=== PATIENT | male | born 1950 | race African-American/Black ===

== ENCOUNTER 2016-06-30 16:00 | Inpatient (IN) ==
[2016-06-30] MEDS ORDERED: ONDANSETRON 4 MG/2 ML VIAL IV STA (16:51)
[2016-06-30] MEDS ORDERED: HYDROmorphone 2 MG/1 ML VIAL IV STA (16:51)
[2016-06-30] MEDS ORDERED: ONDANSETRON 4 MG/2 ML VIAL ONE (17:00)
[2016-06-30] MEDS ORDERED: HYDROmorphone 2 MG/1 ML VIAL ONE ×2 (17:00→19:06)
[2016-06-30 17:14] LABS: Albumin 3.8 G/DL (3.4-5.0); Bilirubin,Total 0.6 MG/DL (0.2-1.0); Calcium 8.2 MG/DL (8.5-10.1); Osmolality,Calculated 290.6 MOS/KG (273-304); Potassium 3.5 MMOL/L (3.5-5.1); Total Protein 7.8 G/DL (6.4-8.3)
[2016-06-30 17:18] LABS: INR 1.1; PT Patient Result 11.4 SECS
[2016-06-30 17:25] LABS: Hematocrit 43.4 VOL% (42.0-52.0); Mean Corpuscular HGB Conc 34.3 GM/DL (32-36); Mean Corpuscular Hemoglobin 31 PG (27-34); Mean Corpuscular Volume 90.2 FL (87-102); Red Blood Count 4.81 10*6/uL (3.8-5.5); White Blood Count 6.5 10*3/uL (4.5-13.71)
[2016-06-30 17:26] LABS: Basophils % 0.6 % (0.0-0.8); Eosinophils # 0.2 10*3/uL (0.0-0.87); Eosinophils % 2.6 % (0.00-10.9); Large Unclassified Cells % 0.5 % (0.0-4.0); Lymphocytes # 1.3 10*3/uL (1.4-4.0); Lymphocytes % 20.1 % (21.2-54.2); Mean Platelet Volume 10.7 FL (9.6-12.0); Monocytes # 0.8 10*3/uL (0.11-0.8); Monocytes % 11.7 % (1.7-12.7); Neutrophils # 4.2 10*3/uL (1.4-7.4); Neutrophils % 64.5 % (38.7-73.9); Platelet Count 208 10*3/uL (130-400); Red Cell Distribution Width 14.1 % (9.3-17.3)
--- NOTE | 2016-06-30 18:38 | XRay Report ---
History: Shortness of breath Date: 06/30/2016 Study: Chest x-ray AP portable Comparison exam: No remote chest x-ray for comparison There is mild cardiomegaly. There is no mediastinal mass. The pulmonary vasculature is not engorged. Some scattered emphysematous changes are present. There is mild elevation of the left hemidiaphragm. There is no confluent infiltrate. There is no gross pleural effusion. There is mild thoracic spondylosis. Impression: No definite acute process. Mild cardiomegaly. Emphysematous changes PROCEDURE INTERPRETED AT [facility] DEPARTMENT OF RADIOLOGY Final Report Signed by: Dr. Alie Moran
--- NOTE | 2016-06-30 18:38 | EKG Report ---
Stationary ECG Study [facility] ER Test Date: 06/30/2016 5:27:40 PM Pat Name: KAYA MURGUIA Department: Room: Gender: M Electrician Yard: MARIYA : 1950 Requested by: Primo Zuñiga Order Number: [id number] Reading MD: BLANCA DOTY Intervals [place] Rate: 85 P: 91 [place]: 160 QRS: 57 QRSD: 101 T: 66 QT: 337 QTc: 380 Interpretive Statements SINUS RHYTHM NONSPECIFIC T-WAVE ABNORMALITY Electronically Signed On 07-01-16 12:34:24 INSURANCE POLICY CLERK by BLANCA DOTY [email or web address]
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
[2016-06-30] MEDS ORDERED: HYDROmorphone 2 MG/1 ML VIAL IV ONE (18:57)
--- NOTE | 2016-06-30 19:17 | Emergency Department Note ---
Fredis Conway Meredith, am scribing for, and in the presence of, Primo Littlejohn MD 16:55. Annetta Conway Charles R, MD, personally performed the services described in this documentation, ascribed by Emily Mcneal in my presence, and it is both accurate and complete 917 . Arrival - Arrival Chief Complaint: Fall Stated Complaint: pain to right hip after fall Mode of Arrival: Wheelchair Limitations: No Limitations Source: Patient, RN Notes Reviewed Time Seen by Provider: 06/30/16 16:42 - History of Present Illness HPI Narrative: Pt is a 66 y/o black male reporting to the ED with c/o right hip pain after slipping on an icy step. He denies hitting his head or LOC. Pt takes ASA daily. Onset (ago): minute(s) Home Medications: Home Medications Medication Instructions Recorded Confirmed Type Carvedilol [Coreg] 6.25 mg PO BID 06/30/16 06/30/16 History amLODIPine [Norvasc] 10 mg PO DAILY 06/30/16 06/30/16 History Review of System - Review of System 12 point system: reviewed and no additional remarkable complaints except as stated - Review of System Musculoskeletal: Present: as per HPI, other (right hip pain ) Exam Vital Signs: Vital Signs Temperature 97.8 F 06/30/16 18:53 Pulse Rate 85 06/30/16 18:53 Respiratory Rate 19 06/30/16 18:53 Blood Pressure 147/94 06/30/16 18:53 O2 Sat by Pulse Oximetry 97 06/30/16 18:53 - General General appearance: alert, in no apparent distress - Head Head exam: Present: atraumatic, normocephalic - Eye Eye exam: Present: normal appearance, PERRL, EOMI - ENT ENT exam: Present: mucous membranes moist, normal external ear exam - Neck Neck exam: Present: full ROM, trachea midline. Absent: tenderness, meningismus , lymphadenopathy, thyromegaly - Chest Chest inspection: Present: symmetric chest wall rise. Absent: tenderness, rash - Respiratory Respiratory exam: Present: normal lung sounds bilaterally. Absent: respiratory distress - Cardiovascular Cardiovascular exam: Present: regular rate, normal rhythm, normal heart sounds. Absent: murmur, rubs, gallop - Abdominal Exam Abdominal exam: Present: soft, normal bowel sounds. Absent: distention, tenderness - Extremities Exam Extremities exam: Present: tenderness (right hip), other (right hip is externally rotated) - Back Exam Back exam: Present: full ROM. Absent: tenderness - Neurological Exam Neurological exam: Present: alert, oriented X3, CN II-XII intact. Absent: motor sensory deficit - Psychiatric Psychiatric exam: Present: normal affect, normal mood - Skin Skin exam: Present: warm, dry, intact Course - Consultations Consultation #1: Dr. Santillan will admit patient Time: 18:58 Consultation #2: Hospitalist will see patient for medical consult Time: 19:16 Results - Labs CBC & BMP: 06/30/16 16:32 06/30/16 16:32 Lab Results: I have reviewed the patients labs Labs: Laboratory Tests 06/30/16 06/30/16 16:32 16:32 INR 1.1 PT Patient/Control Mix 11.4 Sodium 146 H Potassium 3.5 Chloride 104 Carbon Dioxide 30 Anion Gap 15.5 H BUN 13 Creatinine 1.30 Glucose 121 H Calcium 8.2 L Globulin 4.0 H Albumin/Globulin Ratio 0.9 L Disposition Clinical Impression: mechanical fall, right femoral neck fracture. Case discussed with: patient, patient's family Disposition: Still a Patient Condition: Stable Time of Disposition: 19:16
[2016-06-30 19:28] LABS: Apearance,Urine CLEAR (Clear); Bacteria,Urine Occasional /HPF (Few); Bilirubin,Urine Negative (Negative); Blood, Urine Negative (Negative); Glucose,Urine (UA) Negative (Negative); Hyaline Casts,Urine 1 /LPF (0-3); Ketones,Urine Negative (Negative); Mucus,Urine Occasional /LPF (Occasional); Nitrite,Urine Negative (Negative); Protein,Urine Negative; RBC,Urine 1 /HPF (0-4); Urine Color Yellow (Yellow); Urine Specific Gravity 1.015 (1.001-1.035); WBC,Urine <1 /HPF (0-6)
--- NOTE | 2016-06-30 19:30 | Hospitalist Consult Note ---
Assessment and Plan (1) Fracture of femoral neck, right Status: Acute Assessment and plan: low risk for surgery. Current Visit: Yes (2) Hypertension Status: Acute Assessment and plan: restart coreg, hold norvasc Current Visit: Yes (3) COPD (chronic obstructive pulmonary disease) Status: Acute Assessment and plan: oxygen and prn duonebs Current Visit: Yes History of Present Illness - Data of Consult Consult date: 06/30/16 Requesting Physician: Toby Santillan Jr. - Consult Narrative Reason for consult: management of hypertension History of present illness: Mr. Suero is a 66 year old male with a history of htn, copd and cad who slipped on [place] step and fractured his right femoral neck. Patient had stents placed 12 years ago. He denies chest pain or SOB. He denies any dizziness or lightheadness prior to the fall. CC: - Home Medications and Allergies Home Medications: Home Medications Medication Instructions Recorded Confirmed Type Carvedilol [Coreg] 6.25 mg PO BID 06/30/16 06/30/16 History amLODIPine [Norvasc] 10 mg PO DAILY 06/30/16 06/30/16 History Medical,Surgical,& Family Hx - Medical History Cardio: History of: CAD, Hypertension Respiratory: History of: COPD - Surgical History Cardiac Surgeries: Sugical HX of: Cardiac Catheterization Abdominal Surgeries: Surgical HX of: Hernia Repair Additional Surgical History: jaw surgery. - Family History Family History: Reports;: Family Diabetes, Family Heart Disease, Family Stroke - Social History Smoking Status: Former smoker Frequency of Alcohol Use: None Type of Drug Use: None Marital Status: Lives With:: Spouse Functional capacity: independent ambulation - Constitutional Constitutional: Absent: fatigue, fever(s), frequent falls, headache(s) - EENT Eyes: Absent: blurry vision, diplopia Ears: Absent: decreased hearing, ear discharge Nose, mouth and throat: Absent: headache(s), sore throat - Cardiovascular Cardiovascular: Absent: chest pain at rest, chest pain with activity, dyspnea, dyspnea on exertion, edema - Respiratory Respiratory: Absent: cough, dyspnea, dyspnea on exertion - Gastrointestinal Gastrointestinal: Present: abdominal pain. Absent: constipation, diarrhea, nausea, vomiting - Genitourinary Genitourinary: Absent: difficulty urinating, dysuria - Musculoskeletal Musculoskeletal: Absent: arthralgias - Neurological Neurological: Absent: confusion, dizziness, headache(s) - Psychiatric Psychiatric: Absent: anxiety, depression - Endocrine Endocrine: Absent: cold intolerance, heat intolerance - Hematologic/Lymphatic Hematologic/Lymphatic: Absent: easy bleeding, easy bruising Exam - Constitutional Vitals: Period Temp Pulse Resp BP Sys/Prater Pulse Ox Last 24 Hr 97.8 F 85 19 147/94 97 General appearance: normal weight, no acute distress - Head Head exam: Present: normal inspection, normocephalic - Eye Eye exam: Present: EOMI. Absent: scleral icterus Pupils: Present: REENA, normal accommodation - ENT ENT exam: Present: normal exam, normal external ear exam - Neck Neck exam: Absent: lymphadenopathy, thyromegaly - Respiratory Respiratory exam: Present: clear to auscultation bilaterally. Absent: rhonchi, wheezes - Cardiovascular Cardiovascular exam: Present: regular rate and rhythm. Absent: systolic murmur - GI/Abdominal GI/Abdominal exam: Present: normal bowel sounds, soft. Absent: tenderness - Extremities Exam Extremities exam: Present: normal inspection, normal capillary refill - Neurological Exam Neurological exam: Present: alert, oriented X3, CN II-XII intact, reflexes normal. Absent: motor sensory deficit (could not test right leg due to fracture ) - Psychiatric Psychiatric exam: Present: normal affect, normal mood - Skin Skin exam: Present: normal color, warm Results - Labs CBC & BMP: 06/30/16 16:32 06/30/16 16:32 Lab Results: I have reviewed the past 24 hour labs - EKG EKG shows: sinus rhythm - Diagnostic Findings Procedure: Chest x-ray: report reviewed by me (copd), X-ray: report reviewed by me (right femoral neck fracture ) Specialty Discharge - Follow Up or Referrals - Discharge Medications No Action amLODIPine [Norvasc] 10 mg PO DAILY Carvedilol [Coreg] 6.25 mg PO BID
--- NOTE | 2016-06-30 20:20 | Orthopedic History & Physical ---
Assessment and Plan (1) Fracture of femoral neck, right Status: Acute Current Visit: Yes Qualifiers: Encounter type: initial encounter Fracture type: closed Qualified Code(s) : S72.001A - Fracture of unspecified part of neck of right femur, initial encounter for closed fracture History of Present Illness Chief complaint: right hip fracture History of present illness: Mr. Suero is a 66 year old male who slipped and fell off of his back porch this afternoon. He sustained immediate right hip pain and was unable to ambulate. Was found to have a displaced femoral neck fracture. Patient denies any other history of injury. The patient is a independent ambulator. Rarely uses a cane because of his history of a failed back syndrome. He denies any prior problems with his right lower extremity. He denies any numbness or tingling. Past medical history is significant for failed back syndrome, coronary artery disease, hypertension. Past surgical history significant for lumbar spine surgery and 3 coronary artery stent placement No known drug allergies Patient is a former smoker. He stopped in 2004. He has been disabled from failed back syndrome. Review of systems 12 points otherwise noncontributory. He is alert and oriented Heart regular rate and rhythm Lungs clear auscultation Spine and other extremities within without any obvious deformity Right lower extremity is shortened and externally rotated. He can flex extend his toes and ankle. Sensations intact his first dorsal webspace, plantar and dorsal aspects of his foot. He has a 1+ dorsalis pedis and posterior tibial pulse. Capillary refills less than 2 seconds. Radiographs pelvis and hip were reviewed. They demonstrated displaced right femoral neck fracture. Impression: Right displaced femoral neck fracture Plan: I've advised a right total hip arthroplasty. Risks, benefits and rationale for the procedure were discussed. All questions were answered. Risks include but not limited to infection, bleeding, anesthesia, thromboembolic event, dislocation, leg length discrepancy, need for further operation, , etc. Home Medications Medication Instructions Recorded Confirmed Type Carvedilol [Coreg] 6.25 mg PO BID 06/30/16 06/30/16 History amLODIPine [Norvasc] 10 mg PO DAILY 06/30/16 06/30/16 History 12 point system: reviewed and no additional remarkable complaints except as stated Medical,Surgical,& Family Hx - Medical History Cardio: History of: CAD, Hypertension Respiratory: History of: COPD - Surgical History Cardiac Surgeries: Sugical HX of: Cardiac Catheterization Abdominal Surgeries: Surgical HX of: Hernia Repair - Family History Family History: Reports;: Family Diabetes, Family Heart Disease, Family Stroke - Social History Smoking Status: Former smoker Frequency of Alcohol Use: None Type of Drug Use: None Exam - Constitutional Vitals: Period Temp Pulse Resp BP Sys/Prater Pulse Ox Last 24 Hr 97.8 F 85 19 147/94 97 Results - Labs CBC & BMP: 06/30/16 16:32 06/30/16 16:32
[2016-06-30] MEDS ORDERED: MAGNESIUM HYDROXIDE SUSP 30 ML UDCUP PO PRN (21:12)
[2016-06-30] MEDS ORDERED: FAMOTIDINE 20 MG TABLET PO PRN (21:12)
[2016-06-30] MEDS: CARVEDILOL 6.25 MG TABLET PO SCH (21:20)
[2016-06-30] MEDS: HYDROmorphone 2 MG/1 ML VIAL IV PRN (21:20)
[2016-06-30] MEDS: SODIUM CHLORIDE 0.9% 1,000 ML IV SCH (22:06)
[2016-06-30 22:57] LABS: Basophils % 0.5 % (0.0-0.8); Eosinophils # 0.2 10*3/uL (0.0-0.87); Eosinophils % 2.9 % (0.00-10.9); Hemoglobin 12.7 GM/DL (14.0-18.0); Immature Granulocytes % 0.4 %; Immature Granulocytes Absolute 0.02 #; Lymphocytes # 1.6 10*3/uL (1.4-4.0); Lymphocytes % 29.1 % (21.2-54.2); Mean Corpuscular HGB Conc 33.4 GM/DL (32-36); Mean Corpuscular Hemoglobin 30 PG (27-34); Mean Corpuscular Volume 90.7 FL (87-102); Monocytes # 0.9 10*3/uL (0.11-0.8); Monocytes % 15.9 % (1.7-12.7); Neutrophils # 2.8 10*3/uL (1.4-7.4); Neutrophils % 51.2 % (38.7-73.9); Platelet Count 205 10*3/uL (130-400); Red Blood Count 4.19 10*6/uL (3.8-5.5); Red Cell Distribution Width 14.1 % (9.3-17.3); White Blood Count 5.5 10*3/uL (4.5-13.71)
[2016-06-30 23:09] LABS: Albumin 3.7 G/DL (3.4-5.0); Bilirubin,Total 0.7 MG/DL (0.2-1.0); Osmolality,Calculated 293.7 MOS/KG (273-304); Total Protein 6.8 G/DL (6.4-8.3)
[2016-06-30 23:19] LABS: Apearance,Urine CLEAR (Clear); Bilirubin,Urine Negative (Negative); Blood, Urine Negative (Negative); Glucose,Urine (UA) Negative (Negative); Ketones,Urine Negative (Negative); Mucus,Urine Occasional /LPF (Occasional); Nitrite,Urine Negative (Negative); Protein,Urine Negative; RBC,Urine 1 /HPF (0-4); Urine Color Yellow (Yellow); Urine Specific Gravity 1.016 (1.001-1.035); WBC,Urine 1 /HPF (0-6)
[2016-07-01 00:19] LABS: Band Neutrophils 2 % (0-10); Eosinophils 3 % (0-10); Lymphocytes 30 % (20-55); Metamyelocytes 1 %; Myelocytes 4 %; Segmented Neutrophils 56 % (50-85); Total Cells Counted 100
[2016-07-01 00:20] LABS: Platelet Estimate Normal
[2016-07-01] MEDS: ONDANSETRON 4 MG/2 ML VIAL IV PRN ×2 (02:10→11:27)
[2016-07-01] MEDS: HYDROmorphone 2 MG/1 ML VIAL IV PRN ×6 (02:10→20:23)
[2016-07-01 05:26] LABS: Basophils % 0.7 % (0.0-0.8); Eosinophils # 0.2 10*3/uL (0.0-0.87); Eosinophils % 3.6 % (0.00-10.9); Hematocrit 36.5 VOL% (42.0-52.0); Immature Granulocytes % 0.4 %; Immature Granulocytes Absolute 0.02 #; Lymphocytes # 1.8 10*3/uL (1.4-4.0); Lymphocytes % 32.4 % (21.2-54.2); Mean Corpuscular HGB Conc 32.9 GM/DL (32-36); Mean Corpuscular Hemoglobin 30 PG (27-34); Mean Platelet Volume 10.2 FL (9.6-12.0); Monocytes # 0.9 10*3/uL (0.11-0.8); Monocytes % 16.8 % (1.7-12.7); Neutrophils # 2.6 10*3/uL (1.4-7.4); Neutrophils % 46.1 % (38.7-73.9); Platelet Count 210 10*3/uL (130-400); Red Blood Count 4.01 10*6/uL (3.8-5.5); Red Cell Distribution Width 14.3 % (9.3-17.3); White Blood Count 5.5 10*3/uL (4.5-13.71)
[2016-07-01 05:34] LABS: INR 1.1; PT Patient Result 11.4 SECS
[2016-07-01 06:17] LABS: Band Neutrophils 1 % (0-10); Eosinophils 1 % (0-10); Lymphocytes 34 % (20-55); Myelocytes 2 %; Segmented Neutrophils 59 % (50-85); Total Cells Counted 100
[2016-07-01 06:18] LABS: Anisocytosis 1+; Platelet Estimate Normal
[2016-07-01 06:40] LABS: Calcium 7.6 MG/DL (8.5-10.1); Potassium 3.1 MMOL/L (3.5-5.1)
[2016-07-01] MEDS: CARVEDILOL 6.25 MG TABLET PO SCH ×3 (06:46→20:23)
[2016-07-01] MEDS: SODIUM CHLORIDE 0.9% 1,000 ML IV SCH (06:46)
[2016-07-01] MEDS ORDERED: ceFAZolin 2,000 MG in PREMIX 1 EACH IV ONE (06:49)
[2016-07-01] MEDS ORDERED: VANCOMYCIN INJ 1,000 MG in SODIUM CHLORIDE 0.9% 250 ML IV ONE (06:59)
[2016-07-01] MEDS ORDERED: BACITRACIN OINT 0.9 GM PACK TOP ONE (07:01)
[2016-07-01] MEDS ORDERED: TRANEXAMIC ACID 1,000 MG/10 ML VIAL IV ONE (07:02)
[2016-07-01] MEDS ORDERED: LIDOCAINE 2% 5 ML VIAL ONE (07:07)
[2016-07-01] MEDS ORDERED: PHENYLEPHRINE 50 MG/5 ML VIAL ONE (07:07)
[2016-07-01] MEDS ORDERED: PROPOFOL 200 MG/20 ML VIAL IV ONE (07:07)
[2016-07-01] MEDS ORDERED: ONDANSETRON 4 MG/2 ML VIAL ONE (07:07)
[2016-07-01] MEDS ORDERED: ZALEPLON 5 MG CAPSULE PO PRN (07:26)
[2016-07-01] MEDS ORDERED: diphenhydrAMINE CAP 25 MG CAPSULE PO PRN (07:26)
--- NOTE | 2016-07-01 07:31 | Operative Note ---
Date of procedure: 07/01/16 Procedure: DIAGNOSIS: Right displaced femoral neck fracture PROCEDURE: Right total hip arthroplasty (cpt #36133) SURGEON: Jacque ANESTHESIA: Spinal PROCEDURE and FINDINGS: After adequate anesthesia was induced, her operative hip was prepped and draped in usual sterile sterile fashion in the lateral decubitus position. Posterior lateral approach was made. Skin and subcutaneous tissue and deep fascia was incised. The gluteus mago muscle belly was split in line with its fibers. Piriformis, capsule and external rotators were taken down in a single layer for future repair. Templated femoral neck cut was made. Femoral head was retrieved from the acetabulum and sized. The acetabulum was prepared by excising labrum and foveal contents and by sequentially reaming to 57 mm. A 58 mm Continuum shell was pressfit. 1 6.5mm screws and a dome hole plug was used. 36 mm elevated Longevity liner was placed. Femur was prepared with the box osteotome, canal finder and sequential broaches to size 14. Components were trialed. A size 14 VerSys Fiber Metal Tapered stem was implanted. The femoral head was re-trialed and a 36+3.5 mm head was selected. Capsule and external rotators were repaired to the greater trochanter with #5 Tycron. Fascia was repaired with 0 Vicryl [id number] sutures. Deep subcutaneous tissues were closed wiht 0 Vcryl. Deep subcutaneous tissue was closed with a running 2-0 Vicryl suture. Superficial subcutaneous tissue was approximated with interrupted, buried 3-0 Vicryl sutures. Genaro were used to approximate skin. Bacitracin and a sterile dressing were applied. Surgeon / Physician: Toby Santillan Jr. Results - Labs CBC & BMP: 07/01/16 05:02 07/01/16 05:02 Discharge Plan - Discharge Medications No Action amLODIPine [Norvasc] 10 mg PO DAILY Carvedilol [Coreg] 6.25 mg PO BID - Follow Up or Referral - Forms/Instructions
[2016-07-01] MEDS ORDERED: MIDAZOLAM 2 MG/2 ML VIAL ONE (09:21)
[2016-07-01] MEDS ORDERED: fentaNYL 100 MCG/2 ML VIAL ONE (09:22)
[2016-07-01] MEDS ORDERED: SODIUM CHLORIDE 0.9% 200 ML IV ONE (09:22)
[2016-07-01] MEDS ORDERED: hydrALAZINE 20 MG/1 ML VIAL IV ONE (09:35)
[2016-07-01] MEDS ORDERED: ALBUTEROL/IPRATROPIUM 3 ML NEB RESP TX ONE (09:35)
[2016-07-01] MEDS ORDERED: HYDROmorphone 2 MG/1 ML VIAL IV PRN (09:51)
[2016-07-01] MEDS ORDERED: ONDANSETRON 4 MG/2 ML VIAL IV PRN (09:51)
[2016-07-01] MEDS ORDERED: LACTATED RINGERS 1,000 ML IV SCH (10:00)
[2016-07-01] MEDS ORDERED: POTASSIUM CHLORIDE 20 MEQ TABLET PO ONE (10:24)
--- NOTE | 2016-07-01 10:26 | Anesthesia ---
Anesthesia Post OP - Post Ansesthetic Evaluation Patient seen in post op: Yes Resp: within normal limits CV: within normal limits Mental: within normal limits Temp: within normal limits [id number]: within normal limits Nausea and Vomiting: within normal limits Pain: within normal limits
[2016-07-01] MEDS: DOCUSATE SODIUM 100 MG CAPSULE PO SCH ×2 (11:14→20:23)
[2016-07-01] MEDS: DEXT 5% LACT RING KCL 20 MEQ 20 MEQ/1,000 ML BAG IV SCH (11:26)
[2016-07-01] MEDS: methylPREDNISolone SOD SUC 40 MG/1 ML VIAL IV SCH ×2 (11:27→17:32)
[2016-07-01] MEDS: ceFAZolin 2,000 MG in PREMIX 1 EACH IV SCH ×2 (11:28→19:04)
[2016-07-01] MEDS: KETOROLAC 30 MG/1 ML VIAL IV SCH ×3 (11:28→19:03)
--- NOTE | 2016-07-01 11:35 | Hospitalist Progress Note ---
Assessment and Plan (1) Fracture of femoral neck, right Status: Acute Assessment and plan: s/p orif of right hip, cont arixtra Current Visit: Yes Qualifiers: Encounter type: initial encounter Fracture type: closed Qualified Code(s) : S72.001A - Fracture of unspecified part of neck of right femur, initial encounter for closed fracture (2) Hypertension Status: Acute Assessment and plan: restart coreg and norvasc Current Visit: Yes (3) COPD (chronic obstructive pulmonary disease) Status: Acute Assessment and plan: oxygen and duonebs, added steroids Current Visit: Yes Hospitalist: Subjective Interval history: Patient did well during hip surgery. His blood pressure is often I have restarted his home medicines. His potassium was low and we replaced it. He started wheezing a little bit after surgery we have started him on duo nebs and will add some steroids Exam - Constitutional Vitals: Period Temp Pulse Resp BP Sys/Prater Pulse Ox Last 24 Hr 97.4 F-98.7 F 72-86 12-20 112-173/71-123 96-100 Exam: Heart Rate-[RRR] Lungs-[few wheezes] GI-[+bs soft, NT] Ext-[no edema] neuro-alert and oriented 3, motor not tested due to just coming back from surgery. psych-normal mood and affect General-no acute distress. Results - Labs CBC & BMP: 07/01/16 05:02 07/01/16 05:02 Lab Results: I have reviewed the past 24 hour labs Specialty Discharge - Follow Up or Referrals - Discharge Medications No Action amLODIPine [Norvasc] 10 mg PO DAILY Carvedilol [Coreg] 6.25 mg PO BID
--- NOTE | 2016-07-01 11:50 | XRay Report ---
History: Right hip fracture now status post hip replacement Date: 07/01/2016 Study: Right hip single view Comparison exam: Right hip x-ray 06/30/2016 A single AP view of the right hip is submitted. The patient is immediately postop right hip replacement. The hip prosthesis appears be well conjugated. Skin mee and postsurgical soft tissue emphysema are noted lateral to the hip. Impression: Satisfactory postoperative appearance of the right hip prosthesis PROCEDURE INTERPRETED AT [facility] DEPARTMENT OF RADIOLOGY Final Report Signed by: Dr. Alie Moran
[2016-07-01] MEDS: ACETAMINOPHEN 500 MG TABLET PO SCH ×3 (12:06→23:23)
[2016-07-01] MEDS: POTASSIUM CHLORIDE 20 MEQ TABLET PO SCH (14:24)
[2016-07-01] MEDS: amLODIPine 10 MG TABLET PO SCH (14:24)
[2016-07-01] MEDS: ALBUTEROL/IPRATROPIUM 3 ML NEB RESP TX PRN (15:37)
--- NOTE | 2016-07-01 20:15 | Orthopedic Progress Note ---
Assessment and Plan (1) Fracture of femoral neck, right Status: Acute Current Visit: Yes Qualifiers: Encounter type: initial encounter Fracture type: closed Qualified Code(s) : S72.001A - Fracture of unspecified part of neck of right femur, initial encounter for closed fracture Orthopedics - Subjective Interval history: Mr. Suero is doing well. He is not having any current breathing issues. He has been started on duonebs and steroids. His right lower extremity is neurovascularly intact. Dressing dry. Plan: Because this is a total hip arthroplasty, I am concerned of wound healing problems with repeated steroid doses. I have stopped his methylprednisone. Otherwise, continue with duonebs. Exam - Constitutional Vitals: Period Temp Pulse Resp BP Sys/Prater Pulse Ox Last 24 Hr 97.4 F-98.7 F 72-86 12-20 112-173/71-123 93-100 Results - Labs CBC & BMP: 07/01/16 05:02 07/01/16 05:02 Specialty Discharge - Follow Up or Referrals - Discharge Medications No Action amLODIPine [Norvasc] 10 mg PO DAILY Carvedilol [Coreg] 6.25 mg PO BID
[2016-07-02] MEDS: FONDAPARINUX 2.5 MG/0.5 ML SYRINGE SUBCUT SCH (02:24)
[2016-07-02] MEDS: KETOROLAC 30 MG/1 ML VIAL IV SCH (02:24)
[2016-07-02] MEDS: DEXT 5% LACT RING KCL 20 MEQ 20 MEQ/1,000 ML BAG IV SCH (04:00)
[2016-07-02] MEDS: ACETAMINOPHEN 500 MG TABLET PO SCH (06:10)
[2016-07-02] MEDS: HYDROmorphone 2 MG/1 ML VIAL IV PRN ×4 (06:10→20:20)
[2016-07-02 06:20] LABS: Calcium 7.9 MG/DL (8.5-10.1); Osmolality,Calculated 291.8 MOS/KG (273-304); Potassium 4.1 MMOL/L (3.5-5.1)
[2016-07-02] MEDS: ALBUTEROL/IPRATROPIUM 3 ML NEB RESP TX PRN (08:23)
--- NOTE | 2016-07-02 09:16 | Orthopedic Progress Note ---
Assessment and Plan (1) Fracture of femoral neck, right Status: Acute Current Visit: Yes Qualifiers: Encounter type: initial encounter Fracture type: closed Qualified Code(s) : S72.001A - Fracture of unspecified part of neck of right femur, initial encounter for closed fracture Orthopedics - Subjective Interval history: Mr. Suero is doing well this morning. He is ready to mobilize with physical therapy. He's not complaining of shortness of breath. Dressing clean, dry and intact. Right lower extremity is neurovascularly unchanged. Plan: Mobilize with physical therapy. Hold steroids for concern of wound healing problems and infection risk. Stop IV fluids. Exam - Constitutional Vitals: Period Temp Pulse Resp BP Sys/Prater Pulse Ox Last 24 Hr 97.4 F-99 F 72-88 12-20 112-173/71-123 93-99 Results - Labs CBC & BMP: 07/01/16 05:02 07/02/16 05:23 Specialty Discharge - Follow Up or Referrals - Discharge Medications No Action amLODIPine [Norvasc] 10 mg PO DAILY Carvedilol [Coreg] 6.25 mg PO BID
[2016-07-02] MEDS: CARVEDILOL 6.25 MG TABLET PO SCH ×2 (09:57→20:20)
[2016-07-02] MEDS: DOCUSATE SODIUM 100 MG CAPSULE PO SCH ×2 (09:57→20:20)
[2016-07-02] MEDS: amLODIPine 10 MG TABLET PO SCH (09:57)
[2016-07-02] MEDS: POTASSIUM CHLORIDE 20 MEQ TABLET PO SCH (09:57)
--- NOTE | 2016-07-02 15:34 | Hospitalist Progress Note ---
Assessment and Plan (1) Hypertension Status: Acute Assessment and plan: 1)HTN- BP controlled on his usual home meds. 2)COPD- well compensated. Current Visit: Yes (2) COPD (chronic obstructive pulmonary disease) Status: Acute Current Visit: Yes (3) Fracture of femoral neck, right Status: Acute Current Visit: Yes Qualifiers: Encounter type: initial encounter Fracture type: closed Qualified Code(s) : S72.001A - Fracture of unspecified part of neck of right femur, initial encounter for closed fracture Hospitalist: Subjective Interval history: Mr Suero is doing well, up with PT today. His pain is fairly well controlled. He was able to recite his usual meds. Exam - Constitutional Vitals: Period Temp Pulse Resp BP Sys/Prater Pulse Ox Last 24 Hr 98.5 F-99 F 75-98 18-20 120-156/71-89 92-100 General appearance: normal weight, no acute distress - Head Head exam: Present: normocephalic, atraumatic - Eye Eye exam: Present: EOMI. Absent: scleral icterus - Respiratory Respiratory exam: Present: clear to auscultation bilaterally - Cardiovascular Cardiovascular exam: Present: regular rate and rhythm - GI/Abdominal GI/Abdominal exam: Present: normal bowel sounds, soft. Absent: tenderness - Extremities Exam Extremities exam: Absent: edema - Neurological Exam Neurological exam: Present: alert, oriented X3 - Skin Skin exam: Present: warm, dry Results - Labs CBC & BMP: 07/01/16 05:02 07/02/16 05:23 Lab Results: I have reviewed the past 24 hour labs Specialty Discharge - Follow Up or Referrals - Discharge Medications No Action amLODIPine [Norvasc] 10 mg PO DAILY Carvedilol [Coreg] 6.25 mg PO BID
[2016-07-03] MEDS: FONDAPARINUX 2.5 MG/0.5 ML SYRINGE SUBCUT SCH (02:05)
[2016-07-03] MEDS: HYDROmorphone 2 MG/1 ML VIAL IV PRN ×3 (03:40→22:31)
[2016-07-03 07:56] LABS: Basophils % 0.2 % (0.0-0.8); Eosinophils % 0.2 % (0.00-10.9); Hematocrit 33.4 VOL% (42.0-52.0); Hemoglobin 10.9 GM/DL (14.0-18.0); Immature Granulocytes % 0.3 %; Immature Granulocytes Absolute 0.03 #; Lymphocytes # 1.8 10*3/uL (1.4-4.0); Lymphocytes % 19.9 % (21.2-54.2); Mean Corpuscular HGB Conc 32.6 GM/DL (32-36); Mean Corpuscular Hemoglobin 30 PG (27-34); Mean Corpuscular Volume 92.8 FL (87-102); Mean Platelet Volume 10.1 FL (9.6-12.0); Monocytes # 1.1 10*3/uL (0.11-0.8); Monocytes % 12.2 % (1.7-12.7); Neutrophils # 6.1 10*3/uL (1.4-7.4); Neutrophils % 67.2 % (38.7-73.9); Platelet Count 226 10*3/uL (130-400); Red Cell Distribution Width 14.6 % (9.3-17.3)
--- NOTE | 2016-07-03 08:37 | Orthopedic Progress Note ---
Assessment and Plan (1) Fracture of femoral neck, right Status: Acute Current Visit: Yes Qualifiers: Encounter type: initial encounter Fracture type: closed Qualified Code(s) : S72.001A - Fracture of unspecified part of neck of right femur, initial encounter for closed fracture Orthopedics - Subjective Interval history: Mr. Suero is doing well. He was able to ambulate in the room yesterday. He' s more comfortable today. His right lower extremity dressing is clean, dry and intact. Right lower extremity is neurovascularly unchanged. Plan: Mobilize with physical therapy again today. Plan discharge home tomorrow with home health therapy. Exam - Constitutional Vitals: Period Temp Pulse Resp BP Sys/Prater Pulse Ox Last 24 Hr 97.6 F-98.6 F 78-98 18-20 131-146/76-97 92-99 Results - Labs CBC & BMP: 07/03/16 07:49 07/02/16 05:23 Specialty Discharge - Follow Up or Referrals - Discharge Medications No Action amLODIPine [Norvasc] 10 mg PO DAILY Carvedilol [Coreg] 6.25 mg PO BID
[2016-07-03] MEDS: DEXT 5% LACT RING KCL 20 MEQ 20 MEQ/1,000 ML BAG IV SCH (08:43)
[2016-07-03] MEDS ORDERED: amLODIPine 10 MG TABLET PO SCH (09:00)
[2016-07-03] MEDS: DOCUSATE SODIUM 100 MG CAPSULE PO SCH ×2 (09:29→21:53)
[2016-07-03] MEDS: CARVEDILOL 6.25 MG TABLET PO SCH ×2 (09:29→21:53)
[2016-07-03] MEDS: amLODIPine 10 MG TABLET PO SCH (09:29)
[2016-07-03] MEDS: POTASSIUM CHLORIDE 20 MEQ TABLET PO SCH (09:29)
--- NOTE | 2016-07-03 11:17 | Pathology Report from [facility] ---
ACCESSION # : [id number] PATIENT NAME : Jesús Suero ORDERING DR : CASS WOLF MD CLINICAL HX: RT hip femoral neck FX POST-OP DX: Same SPECIMEN INFO: RT hip bone & tissue GROSS DESCRIPTION: The specimen is received in formalin labeled with the patient 's name "JESÚS SUERO" and consists of a femoral head that measures 5.5 x 5.2 x 5.0 cm. The articular surface is smooth, [place] with focally degenerative changes present. The fractured surface is hemorrhagic, jagged with moderate bone softening appreciated. Also in the specimen container are numerous fragments of femoral neck and hemorrhagic bone and tissue measuring approximately 9.2 x 7.2 x 2.0 cm. Blood Bank Manager sections submitted in one cassette following decalcification. DIAGNOSIS FOR JESÚS SUERO: RIGHT HIP BONE & TISSUE, FRACTURE: Marked acute hemorrhage consistent with fracture. SERVICE DATE: 07/01/2016 REPORT DATE: 07/03/2016 PATHOLOGIST: Danita Hussein
--- NOTE | 2016-07-03 11:40 | Hospitalist Progress Note ---
Assessment and Plan (1) Hypertension Status: Acute Assessment and plan: 1)HTN- BP controlled on his usual home meds. 2)COPD- well compensated. Current Visit: Yes (2) COPD (chronic obstructive pulmonary disease) Status: Acute Current Visit: Yes (3) Fracture of femoral neck, right Status: Acute Current Visit: Yes Qualifiers: Encounter type: initial encounter Fracture type: closed Qualified Code(s) : S72.001A - Fracture of unspecified part of neck of right femur, initial encounter for closed fracture Hospitalist: Subjective Interval history: Mr Suero is doing well today. Up in chair. Plans are for discharge home with home PT tomorrow. Exam - Constitutional Vitals: Period Temp Pulse Resp BP Sys/Prater Pulse Ox Last 24 Hr 97.6 F-98.7 F 78-98 18-20 127-146/76-97 92-99 General appearance: normal weight, no acute distress - Eye Eye exam: Present: EOMI. Absent: scleral icterus - Respiratory Respiratory exam: Present: clear to auscultation bilaterally - Cardiovascular Cardiovascular exam: Present: regular rate and rhythm - GI/Abdominal GI/Abdominal exam: Present: normal bowel sounds, soft. Absent: tenderness - Extremities Exam Extremities exam: Absent: edema Results - Labs CBC & BMP: 07/03/16 07:49 07/02/16 05:23 Lab Results: I have reviewed the past 24 hour labs Specialty Discharge - Follow Up or Referrals Follow up with: Hardik Chahal DO [Physician] - 07/18/16 2:00 pm (please [employer] medicines, insurance cards and photo id to your appointment.) - Discharge Medications No Action amLODIPine [Norvasc] 10 mg PO DAILY Carvedilol [Coreg] 6.25 mg PO BID
[2016-07-03] MEDS: ALBUTEROL/IPRATROPIUM 3 ML NEB RESP TX PRN (15:08)
[2016-07-04] MEDS: FONDAPARINUX 2.5 MG/0.5 ML SYRINGE SUBCUT SCH (02:35)
--- NOTE | 2016-07-04 08:24 | Discharge Summary ---
Hospital Course - Hospital Course Hospital Course: Mr Suero was admitted with a right displaced femoral neck fracture. He underwent an uncomplicated right total hip arthroplasty. He received perioperative DVT and antimicrobial prophylaxis. The hospitalist service was consulted to manage his medical conditions perioperatively. He was discharged home with home health therapy. He is routine total hip discharge instructions. Today, his dressings clean, dry and intact. His right lower extremity is neurovascularly unchanged. Diagnosis - Discharge Diagnosis (1) Fracture of femoral neck, right Status: Acute Specialty Discharge - Follow Up or Referrals Follow up with: Toby Santillan Jr., MD [Physician] - 1 Month Hardik Chahal DO [Physician] - 07/18/16 2:00 pm (please [employer] medicines, insurance cards and photo id to your appointment.) Discharge Plan - Discharge Data Disposition: Home Health Service Condition at Discharge: Stable Discharge Diet: advance to your usual diet Activity: ambulate only with your walker Hygiene: may shower Weight Bearing at Discharge: weight bear as tolerated Driving: not until seen by doctor - Discharge Medications No Action amLODIPine [Norvasc] 10 mg PO DAILY Carvedilol [Coreg] 6.25 mg PO BID - Follow Up or Referral Follow Up: Toby Santillan Jr., MD [Physician] - 1 Month Hardik Chahal DO [Physician] - 07/18/16 2:00 pm (please [employer] medicines, insurance cards and photo id to your appointment.) - Forms/Instructions Instructions: Total Hip Replacement (DC) Additional Discharge Instructions: Posterior hip precautions for 3 months. Daily dry dressing changes. Arrange for walker and bedside commode for home use. Wear KARI hose for 1 month. Follow-up appointment in 4 weeks. Discontinue mee and Steri-Strip wound on 07/13/2015. Prescription for Evans 7.5 with 30 tablets was written. Take aspirin 325 mg by mouth daily for 3 weeks. Exam - Constitutional Vitals: Period Temp Pulse Resp BP Sys/Prater Pulse Ox Last 24 Hr 97.7 F-98.2 F 80-101 17-20 126-153/73-87 90-99 DS: Provider Date of admission: 06/30/16 19:48 Primary care physician: . No PCP Attending physician on admission: Toby Santillan Jr., Consults: 06/30/16 21:12 Consult to Anesthesiology [CONS] Routine Consulting Provider: Reason for Anesthesiology: Pre-op Clearance Consult to Physician [CONS] Routine Comment: surgically clearance Consulting Provider: [facility] When should Consulting Provider be notified: Now 07/01/16 07:27 Consult to Case Mgmt/Social Srvs [CONS] Routine Reason for Case Mgmt/Social Srvs: Rehab Home Health Equipment Consult Comment: Bedside Commode for home use; Pt is 6ft 4in; 214 lbs. Consult to Occupational Therapy [CONS] Routine Reason for Occupational Therapy: Evaluate and Treat Consult Comment: ADL's Consult to Physical Therapy [CONS] Routine Reason for Physical Therapy: Evaluate and Treat Gait Training Consult Comment: posterior hip precautions, weightbearing as tolerated 07/01/16 07:50 Consult to Pharmacy [CONS] Routine Reason for Pharmacy Consult: Adjust Meds Renal Funct 07/02/16 12:56 Consult to Physical Therapy [CONS] Routine Reason for Physical Therapy: Other Consult Comment: Order a Standard Walker for patient to take home f/home rehab. Discharging clinician: Toby Santillan Jr., Expected date of discharge: 07/04/16
[2016-07-04] MEDS: CARVEDILOL 6.25 MG TABLET PO SCH (08:43)
[2016-07-04] MEDS: amLODIPine 10 MG TABLET PO SCH (08:43)
[2016-07-04] MEDS: DOCUSATE SODIUM 100 MG CAPSULE PO SCH (08:43)
[2016-07-04] MEDS: POTASSIUM CHLORIDE 20 MEQ TABLET PO SCH (08:43)
[2016-07-12 12:38] VITALS: BP 147/94
== END 2016-07-04 11:45 | disposition home health service (06) | DRG 470 ==
LOC: EDBD → EDUNIT# → N.ED 16:00 → N.EDINP 19:48 → N.3E 20:34
PROVIDERS: ADMIT Orthopaedic Surgery; ATTEND Orthopaedic Surgery

== ENCOUNTER 2017-05-29 15:14 | Inpatient (IN) ==
[2017-05-29] MEDS ORDERED: ALBUTEROL/IPRATROPIUM 3 ML NEB RESP TX PRN (16:04)
[2017-05-29] MEDS: DEXTROSE 5% NACL 0.45% 1,000 ML IV SCH (16:55)
[2017-05-29] MEDS: MEROPENEM 1,000 MG in SYRINGE 1 EACH IV SCH (16:55)
[2017-05-29] MEDS: methylPREDNISolone SOD SUC 40 MG/1 ML VIAL IV SCH (16:56)
[2017-05-29] MEDS ORDERED: AMINOPHYLLINE 250 MG in SODIUM CHLORIDE 0.9% 100 ML IV ONE (17:00)
[2017-05-29 18:40] LABS: Basophils % 0.5 % (0.0-0.8); Eosinophils # 0.2 10*3/uL (0.0-0.87); Eosinophils % 2.8 % (0.00-10.9); Hematocrit 44.8 VOL% (42.0-52.0); Hemoglobin 15.1 GM/DL (14.0-18.0); Immature Granulocytes % 0.3 %; Immature Granulocytes Absolute 0.02 #; Lymphocytes # 1.4 10*3/uL (1.4-4.0); Lymphocytes % 24.3 % (21.2-54.2); Mean Corpuscular HGB Conc 33.7 GM/DL (32-36); Mean Corpuscular Hemoglobin 30 PG (27-34); Mean Corpuscular Volume 90.3 FL (87-102); Mean Platelet Volume 10.9 FL (9.6-12.0); Monocytes # 0.2 10*3/uL (0.11-0.8); Monocytes % 2.8 % (1.7-12.7); Neutrophils % 69.3 % (38.7-73.9); Platelet Count 207 T/CUMM (130-400); Red Blood Count 4.96 MC/CUMM (3.8-5.5); White Blood Count 5.8 T/CUMM (4-12)
[2017-05-29 19:07] LABS: Albumin 4.4 G/DL (3.4-5.0); Bilirubin,Total 0.9 MG/DL (0.2-1.0); Calcium 9.5 MG/DL (8.5-10.1); Magnesium 1.5 MG/DL (1.8-2.4); Osmolality,Calculated 286.3 MOS/KG (273-304); Potassium 3.9 MMOL/L (3.5-5.1); Thyroid Stimulating Hormone 0.851 uIU/ml (0.358-3.74); Total Protein 7.8 G/DL (6.4-8.3)
[2017-05-29 20:18] LABS: Apearance,Urine CLEAR (Clear); Bilirubin,Urine Negative (Negative); Blood, Urine Negative (Negative); Glucose,Urine (UA) >=500 mg/dL (Negative); Ketones,Urine 5 mg/dL (Negative); Mucus,Urine Occasional /LPF (Occasional); Nitrite,Urine Negative (Negative); Protein,Urine 30 MG/DL; RBC,Urine 1 /HPF (0-4); Urine Color Yellow (Yellow); Urine Specific Gravity 1.015 (1.001-1.035); Urine Urobilinogen < 2.0 EU/DL (0.2-1.0); WBC,Urine <1 /HPF (0-6)
[2017-05-29] MEDS: ALBUTEROL/IPRATROPIUM 3 ML NEB RESP TX SCH (20:47)
[2017-05-29] MEDS: ALBUTEROL 0.4 MG/ML 30 ML/BOTTLE PO SCH (22:35)
[2017-05-29] MEDS: CARVEDILOL 6.25 MG TABLET PO SCH (22:35)
[2017-05-29] MEDS: AMINOPHYLLINE 500 MG in SODIUM CHLORIDE 0.9% 480 ML IV SCH (22:47)
[2017-05-30] MEDS: methylPREDNISolone SOD SUC 40 MG/1 ML VIAL IV SCH ×3 (00:52→16:37)
[2017-05-30] MEDS: MEROPENEM 1,000 MG in SYRINGE 1 EACH IV SCH ×3 (00:53→16:37)
[2017-05-30] MEDS: ALBUTEROL/IPRATROPIUM 3 ML NEB RESP TX SCH ×4 (01:14→19:35)
[2017-05-30] MEDS: ALBUTEROL 0.4 MG/ML 30 ML/BOTTLE PO SCH ×3 (05:29→21:36)
[2017-05-30 07:03] LABS: Hematocrit 41.5 VOL% (42.0-52.0); Hemoglobin 14.5 GM/DL (14.0-18.0); Immature Granulocytes % 0.5 %; Immature Granulocytes Absolute 0.03 #; Lymphocytes # 1.2 10*3/uL (1.4-4.0); Lymphocytes % 22.1 % (21.2-54.2); Mean Corpuscular HGB Conc 34.9 GM/DL (32-36); Mean Corpuscular Hemoglobin 31 PG (27-34); Mean Corpuscular Volume 87.4 FL (87-102); Mean Platelet Volume 10.9 FL (9.6-12.0); Monocytes # 0.1 10*3/uL (0.11-0.8); Monocytes % 1.1 % (1.7-12.7); Neutrophils # 4.3 10*3/uL (1.4-7.4); Neutrophils % 76.3 % (38.7-73.9); Platelet Count 205 T/CUMM (130-400); Red Blood Count 4.75 MC/CUMM (3.8-5.5); Red Cell Distribution Width 12.7 % (9.3-17.3); White Blood Count 5.6 T/CUMM (4-12)
[2017-05-30 07:29] LABS: Calcium 9.2 MG/DL (8.5-10.1); Magnesium 1.5 MG/DL (1.8-2.4); Osmolality,Calculated 283.7 MOS/KG (273-304); Potassium 3.6 MMOL/L (3.5-5.1)
[2017-05-30] MEDS ORDERED: GLUCAGON 1 MG VIAL IM PRN ×2 (08:17→11:30)
[2017-05-30] MEDS ORDERED: DEXTROSE 50% 25 GM/50 ML VIAL IV PRN ×2 (08:17→11:30)
[2017-05-30] MEDS: amLODIPine 10 MG TABLET PO SCH (09:15)
[2017-05-30] MEDS: CARVEDILOL 6.25 MG TABLET PO SCH ×2 (09:15→21:32)
[2017-05-30] MEDS: DOCUSATE SODIUM 100 MG CAPSULE PO SCH (09:34)
[2017-05-30] MEDS: SODIUM CHLORIDE 0.45% 1,000 ML IV SCH (09:34)
[2017-05-30] MEDS: INSULIN REGULAR 100 UNIT/ML SUBCUT SCH ×3 (12:14→21:31)
[2017-05-30] MEDS: MONTELUKAST 10 MG TABLET PO SCH (13:46)
[2017-05-30] MEDS: MAGNESIUM CHLORIDE 64 MG TABLET PO SCH ×2 (16:40→21:32)
[2017-05-30] MEDS: DEXTROSE 5% NACL 0.45% 1,000 ML IV SCH (17:22)
[2017-05-31] MEDS: ALBUTEROL/IPRATROPIUM 3 ML NEB RESP TX SCH ×4 (01:10→19:46)
[2017-05-31] MEDS: MEROPENEM 1,000 MG in SYRINGE 1 EACH IV SCH ×3 (01:16→15:30)
[2017-05-31] MEDS: methylPREDNISolone SOD SUC 40 MG/1 ML VIAL IV SCH ×3 (01:16→16:48)
[2017-05-31] MEDS: AMINOPHYLLINE 500 MG in SODIUM CHLORIDE 0.9% 480 ML IV SCH (03:26)
[2017-05-31] MEDS: SODIUM CHLORIDE 0.45% 1,000 ML IV SCH ×2 (03:26→19:59)
[2017-05-31] MEDS: ALBUTEROL 0.4 MG/ML 30 ML/BOTTLE PO SCH ×3 (06:08→23:12)
[2017-05-31 07:37] LABS: Magnesium 1.7 MG/DL (1.8-2.4); Osmolality,Calculated 281.7 MOS/KG (273-304); Potassium 3.7 MMOL/L (3.5-5.1)
[2017-05-31] MEDS: INSULIN REGULAR 100 UNIT/ML SUBCUT SCH ×4 (09:04→21:55)
[2017-05-31] MEDS: CARVEDILOL 6.25 MG TABLET PO SCH ×2 (09:05→21:42)
[2017-05-31] MEDS: MAGNESIUM CHLORIDE 64 MG TABLET PO SCH ×3 (09:05→21:42)
[2017-05-31] MEDS: DOCUSATE SODIUM 100 MG CAPSULE PO SCH (09:05)
[2017-05-31] MEDS: MONTELUKAST 10 MG TABLET PO SCH (09:05)
[2017-05-31] MEDS: amLODIPine 10 MG TABLET PO SCH (09:06)
[2017-05-31] MEDS: THEOPHYLLINE ER 300 MG TABLET PO SCH ×2 (12:30→16:50)
[2017-06-01] MEDS: MEROPENEM 1,000 MG in SYRINGE 1 EACH IV SCH ×3 (00:20→16:30)
[2017-06-01] MEDS: methylPREDNISolone SOD SUC 40 MG/1 ML VIAL IV SCH ×3 (00:20→16:30)
[2017-06-01] MEDS: ALBUTEROL 0.4 MG/ML 30 ML/BOTTLE PO SCH ×2 (05:05→14:30)
[2017-06-01] MEDS: ALBUTEROL/IPRATROPIUM 3 ML NEB RESP TX SCH ×5 (06:05→23:53)
[2017-06-01] MEDS: amLODIPine 10 MG TABLET PO SCH (10:13)
[2017-06-01] MEDS: MAGNESIUM CHLORIDE 64 MG TABLET PO SCH ×3 (10:13→21:51)
[2017-06-01] MEDS: DOCUSATE SODIUM 100 MG CAPSULE PO SCH (10:13)
[2017-06-01] MEDS: CARVEDILOL 6.25 MG TABLET PO SCH ×2 (10:13→21:49)
[2017-06-01] MEDS: MONTELUKAST 10 MG TABLET PO SCH (10:14)
[2017-06-01] MEDS: THEOPHYLLINE ER 300 MG TABLET PO SCH ×2 (10:14→16:30)
[2017-06-01] MEDS: INSULIN REGULAR 100 UNIT/ML SUBCUT SCH ×4 (10:16→21:49)
[2017-06-01] MEDS: SODIUM CHLORIDE 0.45% 1,000 ML IV SCH (12:10)
[2017-06-02] MEDS: methylPREDNISolone SOD SUC 40 MG/1 ML VIAL IV SCH ×3 (00:29→17:04)
[2017-06-02] MEDS: MEROPENEM 1,000 MG in SYRINGE 1 EACH IV SCH ×3 (00:37→17:04)
[2017-06-02] MEDS: ALBUTEROL 0.4 MG/ML 30 ML/BOTTLE PO SCH ×4 (04:44→21:38)
[2017-06-02] MEDS: SODIUM CHLORIDE 0.45% 1,000 ML IV SCH ×2 (05:18→21:38)
[2017-06-02] MEDS: ALBUTEROL/IPRATROPIUM 3 ML NEB RESP TX SCH ×3 (07:24→19:43)
[2017-06-02] MEDS: INSULIN REGULAR 100 UNIT/ML SUBCUT SCH ×4 (09:23→21:36)
[2017-06-02] MEDS: THEOPHYLLINE ER 300 MG TABLET PO SCH ×2 (09:25→17:04)
[2017-06-02] MEDS: CARVEDILOL 6.25 MG TABLET PO SCH ×2 (09:25→21:37)
[2017-06-02] MEDS: MAGNESIUM CHLORIDE 64 MG TABLET PO SCH ×3 (09:25→21:37)
[2017-06-02] MEDS: amLODIPine 10 MG TABLET PO SCH (09:25)
[2017-06-02] MEDS: MONTELUKAST 10 MG TABLET PO SCH (09:25)
[2017-06-02] MEDS: DOCUSATE SODIUM 100 MG CAPSULE PO SCH (09:25)
[2017-06-03] MEDS: MEROPENEM 1,000 MG in SYRINGE 1 EACH IV SCH ×4 (00:11→23:41)
[2017-06-03] MEDS: methylPREDNISolone SOD SUC 40 MG/1 ML VIAL IV SCH ×4 (00:11→23:41)
[2017-06-03] MEDS: ALBUTEROL/IPRATROPIUM 3 ML NEB RESP TX SCH ×4 (01:12→19:30)
[2017-06-03] MEDS: ALBUTEROL 0.4 MG/ML 30 ML/BOTTLE PO SCH ×3 (06:47→21:36)
[2017-06-03 07:14] LABS: Calcium 8.7 MG/DL (8.5-10.1); Magnesium 2.1 MG/DL (1.8-2.4); Osmolality,Calculated 283.7 MOS/KG (273-304); Potassium 3.9 MMOL/L (3.5-5.1)
[2017-06-03] MEDS: MAGNESIUM CHLORIDE 64 MG TABLET PO SCH ×3 (09:20→21:36)
[2017-06-03] MEDS: MONTELUKAST 10 MG TABLET PO SCH (09:20)
[2017-06-03] MEDS: DOCUSATE SODIUM 100 MG CAPSULE PO SCH (09:20)
[2017-06-03] MEDS: amLODIPine 10 MG TABLET PO SCH (09:20)
[2017-06-03] MEDS: INSULIN REGULAR 100 UNIT/ML SUBCUT SCH ×4 (09:20→21:36)
[2017-06-03] MEDS: THEOPHYLLINE ER 300 MG TABLET PO SCH ×2 (09:20→17:00)
[2017-06-03] MEDS: CARVEDILOL 6.25 MG TABLET PO SCH ×2 (09:21→21:36)
[2017-06-03] MEDS ORDERED: metFORMIN 500 MG TABLET PO SCH (12:00)
[2017-06-03] MEDS: DICLOFENAC 1.3% PATCH 5/PACK TRANSDERM SCH ×2 (15:54→21:34)
[2017-06-03] MEDS: metFORMIN 500 MG TABLET PO SCH (16:59)
[2017-06-04] MEDS: ALBUTEROL/IPRATROPIUM 3 ML NEB RESP TX SCH ×4 (00:31→20:43)
[2017-06-04] MEDS: ALBUTEROL 0.4 MG/ML 30 ML/BOTTLE PO SCH ×3 (06:09→21:24)
[2017-06-04] MEDS: INSULIN REGULAR 100 UNIT/ML SUBCUT SCH ×4 (09:17→21:25)
[2017-06-04] MEDS: MAGNESIUM CHLORIDE 64 MG TABLET PO SCH ×3 (09:18→21:24)
[2017-06-04] MEDS: methylPREDNISolone SOD SUC 40 MG/1 ML VIAL IV SCH ×2 (09:18→16:11)
[2017-06-04] MEDS: DICLOFENAC 1.3% PATCH 5/PACK TRANSDERM SCH ×2 (09:18→21:26)
[2017-06-04] MEDS: MEROPENEM 1,000 MG in SYRINGE 1 EACH IV SCH ×2 (09:19→16:11)
[2017-06-04] MEDS: PANTOPRAZOLE 40 MG TABLET PO SCH (09:20)
[2017-06-04] MEDS: metFORMIN 500 MG TABLET PO SCH ×2 (09:20→16:11)
[2017-06-04] MEDS: THEOPHYLLINE ER 300 MG TABLET PO SCH ×2 (09:20→16:11)
[2017-06-04] MEDS: MONTELUKAST 10 MG TABLET PO SCH (09:20)
[2017-06-04] MEDS: amLODIPine 10 MG TABLET PO SCH (09:20)
[2017-06-04] MEDS: DOCUSATE SODIUM 100 MG CAPSULE PO SCH (09:42)
[2017-06-04] MEDS: CARVEDILOL 6.25 MG TABLET PO SCH ×2 (09:42→21:24)
[2017-06-04] MEDS: glyBURIDE 2.5 MG TABLET PO SCH (16:11)
[2017-06-05] MEDS: methylPREDNISolone SOD SUC 40 MG/1 ML VIAL IV SCH ×2 (00:14→09:11)
[2017-06-05] MEDS: MEROPENEM 1,000 MG in SYRINGE 1 EACH IV SCH ×2 (00:16→09:11)
[2017-06-05] MEDS: ALBUTEROL/IPRATROPIUM 3 ML NEB RESP TX SCH ×2 (01:51→07:26)
[2017-06-05] MEDS: ALBUTEROL 0.4 MG/ML 30 ML/BOTTLE PO SCH (07:26)
[2017-06-05] MEDS: glyBURIDE 2.5 MG TABLET PO SCH (09:10)
[2017-06-05] MEDS: amLODIPine 10 MG TABLET PO SCH (09:10)
[2017-06-05] MEDS: CARVEDILOL 6.25 MG TABLET PO SCH (09:10)
[2017-06-05] MEDS: THEOPHYLLINE ER 300 MG TABLET PO SCH (09:10)
[2017-06-05] MEDS: metFORMIN 500 MG TABLET PO SCH (09:10)
[2017-06-05] MEDS: MONTELUKAST 10 MG TABLET PO SCH (09:10)
[2017-06-05] MEDS: MAGNESIUM CHLORIDE 64 MG TABLET PO SCH (09:11)
[2017-06-05] MEDS: DOCUSATE SODIUM 100 MG CAPSULE PO SCH (09:11)
[2017-06-05] MEDS: PANTOPRAZOLE 40 MG TABLET PO SCH (09:11)
[2017-06-05] MEDS: DICLOFENAC 1.3% PATCH 5/PACK TRANSDERM SCH (09:14)
[2017-06-05] MEDS: INSULIN REGULAR 100 UNIT/ML SUBCUT SCH ×2 (09:20→11:32)
[2017-06-05 12:12] VITALS: BP 121/81
== END 2017-06-05 12:54 | disposition home health service (06) | DRG 192 ==
LOC: N.5E 15:39
PROVIDERS: ADMIT Internal Medicine Pulmonary Disease; ATTEND Internal Medicine Pulmonary Disease

== ENCOUNTER 2017-07-11 10:55 | Observation (INO) ==
[2017-07-11] MEDS ORDERED: MAGNESIUM SULF RIDER 2 GM in PREMIX 1 EACH IV PRN ×2 (11:53→12:09)
[2017-07-11] MEDS ORDERED: POTASSIUM CHLORIDE 20 MEQ TABLET PO PRN (11:53)
[2017-07-11] MEDS ORDERED: ZALEPLON 5 MG CAPSULE PO PRN (12:00)
[2017-07-11] MEDS ORDERED: BISACODYL 5 MG TABLET PO PRN ×2 (12:00→12:08)
[2017-07-11] MEDS ORDERED: ONDANSETRON 4 MG/2 ML VIAL IV PRN ×2 (12:00→12:08)
[2017-07-11] MEDS ORDERED: ACETAMINOPHEN 325 MG TABLET PO PRN ×2 (12:00→12:08)
[2017-07-11] MEDS ORDERED: guaiFENesin/DM ER 600-30 MG TABLET PO PRN (12:00)
[2017-07-11] MEDS ORDERED: INFLUENZA VIRUS VACCINE 0.5 ML SYRINGE IM ONE (12:02)
[2017-07-11] MEDS ORDERED: MAGNESIUM HYDROXIDE SUSP 30 ML UDCUP PO PRN (12:08)
[2017-07-11] MEDS ORDERED: MORPHINE 2 MG/1 ML SYRINGE IV PRN (12:08)
[2017-07-11] MEDS ORDERED: POTASSIUM CHLORIDE RIDER 10 MEQ in PREMIX 1 EACH IV PRN (12:09)
[2017-07-11] MEDS ORDERED: GLUCAGON 1 MG VIAL IM PRN (12:16)
[2017-07-11] MEDS ORDERED: DEXTROSE 50% 25 GM/50 ML VIAL IV PRN (12:16)
[2017-07-11 13:40] LABS: Basophils # 0.1 10*3/uL (0.0-0.2); Basophils % 0.9 % (0.0-0.8); Eosinophils # 0.2 10*3/uL (0.0-0.87); Eosinophils % 3.2 % (0.00-10.9); Hematocrit 44.8 VOL% (42.0-52.0); Immature Granulocytes % 0.4 %; Immature Granulocytes Absolute 0.02 #; Lymphocytes # 1.7 10*3/uL (1.4-4.0); Lymphocytes % 31.3 % (21.2-54.2); Mean Corpuscular HGB Conc 33.5 GM/DL (32-36); Mean Corpuscular Hemoglobin 30 PG (27-34); Mean Corpuscular Volume 89.2 FL (87-102); Mean Platelet Volume 10.5 FL (9.6-12.0); Monocytes # 0.8 10*3/uL (0.11-0.8); Monocytes % 14.5 % (1.7-12.7); Neutrophils # 2.6 10*3/uL (1.4-7.4); Neutrophils % 49.7 % (38.7-73.9); Platelet Count 377 T/CUMM (130-400); Red Blood Count 5.02 MC/CUMM (3.8-5.5); Red Cell Distribution Width 12.3 % (9.3-17.3); White Blood Count 5.3 T/CUMM (4-12)
[2017-07-11 13:48] LABS: PT Patient Result 10.7 SECS
[2017-07-11] MEDS ORDERED: FUROSEMIDE 40 MG/4 ML VIAL IV ONE (13:53)
[2017-07-11] MEDS: ALBUTEROL 0.4 MG/ML 30 ML/BOTTLE PO SCH ×2 (14:09→21:09)
[2017-07-11 14:10] LABS: Bilirubin,Total 0.5 MG/DL (0.2-1.0); Calcium 9.6 MG/DL (8.5-10.1); Osmolality,Calculated 272.8 MOS/KG (273-304); Potassium 4.2 MMOL/L (3.5-5.1); Total Protein 7.4 G/DL (6.4-8.3)
[2017-07-11] MEDS: NITROGLYCERIN 2% OINT 1 INCH/GM PACK TOP SCH ×2 (14:10→17:28)
[2017-07-11 14:12] LABS: Troponin I Only < 0.015 NG/ML (0.00-0.045)
[2017-07-11] MEDS: MAGNESIUM CHLORIDE 64 MG TABLET PO SCH ×2 (14:12→21:09)
[2017-07-11] MEDS: ASPIRIN EC 81 MG TABLET PO SCH (14:12)
[2017-07-11] MEDS: predniSONE 20 MG TABLET PO SCH (14:12)
[2017-07-11] MEDS: ENOXAPARIN 100 MG/ML SYRINGE SUBCUT SCH (14:20)
[2017-07-11] MEDS: ALBUTEROL 2.5 MG/3 ML NEB RESP TX SCH ×3 (14:29→23:37)
[2017-07-11 15:55] LABS: Troponin I Only < 0.015 NG/ML (0.00-0.045)
[2017-07-11] MEDS: INSULIN REGULAR 100 UNIT/ML SUBCUT SCH ×2 (16:51→21:14)
[2017-07-11] MEDS: THEOPHYLLINE ER 300 MG TABLET PO SCH (17:28)
[2017-07-11] MEDS: glyBURIDE 2.5 MG TABLET PO SCH (18:29)
[2017-07-11 18:54] LABS: Troponin I Only < 0.015 NG/ML (0.00-0.045)
[2017-07-11] MEDS ORDERED: CARVEDILOL 12.5 MG TABLET PO SCH (21:00)
[2017-07-11] MEDS: PRAVASTATIN 40 MG TABLET PO SCH (21:09)
[2017-07-11] MEDS: CARVEDILOL 6.25 MG TABLET PO SCH (21:09)
[2017-07-12] MEDS: NITROGLYCERIN 2% OINT 1 INCH/GM PACK TOP SCH ×4 (00:26→17:31)
[2017-07-12] MEDS: ALBUTEROL 2.5 MG/3 ML NEB RESP TX SCH ×5 (03:23→20:06)
[2017-07-12] MEDS: ENOXAPARIN 100 MG/ML SYRINGE SUBCUT SCH (03:30)
[2017-07-12] MEDS: ALBUTEROL 0.4 MG/ML 30 ML/BOTTLE PO SCH ×3 (05:54→22:08)
[2017-07-12 05:59] LABS: Basophils % 0.7 % (0.0-0.8); Eosinophils % 0.5 % (0.00-10.9); Hematocrit 40.9 VOL% (42.0-52.0); Hemoglobin 13.8 GM/DL (14.0-18.0); Immature Granulocytes % 0.5 %; Immature Granulocytes Absolute 0.03 #; Lymphocytes # 2.1 10*3/uL (1.4-4.0); Lymphocytes % 35.2 % (21.2-54.2); Mean Corpuscular HGB Conc 33.7 GM/DL (32-36); Mean Corpuscular Hemoglobin 30 PG (27-34); Mean Corpuscular Volume 88.5 FL (87-102); Mean Platelet Volume 10.5 FL (9.6-12.0); Monocytes # 0.8 10*3/uL (0.11-0.8); Monocytes % 13.4 % (1.7-12.7); Neutrophils # 2.9 10*3/uL (1.4-7.4); Neutrophils % 49.7 % (38.7-73.9); Platelet Count 362 T/CUMM (130-400); Red Blood Count 4.62 MC/CUMM (3.8-5.5); Red Cell Distribution Width 12.2 % (9.3-17.3); White Blood Count 5.9 T/CUMM (4-12)
[2017-07-12 06:19] LABS: Calcium 8.8 MG/DL (8.5-10.1); Osmolality,Calculated 274.5 MOS/KG (273-304); Potassium 3.5 MMOL/L (3.5-5.1); Risk Ratio 2.48; VLDL CHOLESTEROL 14.6 MG/DL
[2017-07-12 06:22] LABS: Albumin 3.7 G/DL (3.4-5.0); Bilirubin,Total 1.4 MG/DL (0.2-1.0); Calcium 9.2 MG/DL (8.5-10.1); Osmolality,Calculated 273.7 MOS/KG (273-304); Potassium 3.5 MMOL/L (3.5-5.1); Total Protein 6.9 G/DL (6.4-8.3)
[2017-07-12] MEDS: SODIUM CHLORIDE 0.45% 1,000 ML IV SCH ×3 (07:08→21:06)
[2017-07-12] MEDS ORDERED: DIAZEPAM 5 MG TABLET PO ONE (08:00)
[2017-07-12] MEDS ORDERED: diphenhydrAMINE CAP 25 MG CAPSULE PO ONE (08:00)
[2017-07-12] MEDS: INSULIN REGULAR 100 UNIT/ML SUBCUT SCH ×4 (08:58→21:08)
[2017-07-12] MEDS: glyBURIDE 2.5 MG TABLET PO SCH ×2 (08:59→15:59)
[2017-07-12] MEDS ORDERED: PANTOPRAZOLE 40 MG TABLET PO SCH (09:00)
[2017-07-12] MEDS: THEOPHYLLINE ER 300 MG TABLET PO SCH ×2 (09:03→16:00)
[2017-07-12] MEDS: ASPIRIN EC 81 MG TABLET PO SCH (09:03)
[2017-07-12] MEDS: amLODIPine 10 MG TABLET PO SCH (09:03)
[2017-07-12] MEDS: MONTELUKAST 10 MG TABLET PO SCH (09:03)
[2017-07-12] MEDS: CARVEDILOL 6.25 MG TABLET PO SCH (09:04)
[2017-07-12] MEDS: predniSONE 20 MG TABLET PO SCH (09:04)
[2017-07-12] MEDS: MAGNESIUM CHLORIDE 64 MG TABLET PO SCH ×3 (09:09→21:10)
[2017-07-12] MEDS: LEVOFLOXACIN 500 MG TABLET PO SCH (09:09)
[2017-07-12] MEDS: PANTOPRAZOLE 40 MG TABLET PO SCH (09:09)
[2017-07-12] MEDS ORDERED: LIDOCAINE 1% 20 ML VIAL ONE (16:06)
[2017-07-12] MEDS ORDERED: fentaNYL 100 MCG/2 ML VIAL ONE ×2 (16:07→16:34)
[2017-07-12] MEDS ORDERED: MIDAZOLAM 2 MG/2 ML VIAL ONE ×2 (16:07→16:34)
[2017-07-12] MEDS: CARVEDILOL 12.5 MG TABLET PO SCH (21:10)
[2017-07-12] MEDS: PRAVASTATIN 40 MG TABLET PO SCH (21:10)
[2017-07-12] MEDS: LOSARTAN 50 MG TABLET PO SCH (21:10)
[2017-07-13] MEDS: NITROGLYCERIN 2% OINT 1 INCH/GM PACK TOP SCH ×3 (00:05→12:22)
[2017-07-13] MEDS: ALBUTEROL 2.5 MG/3 ML NEB RESP TX SCH ×4 (00:41→10:47)
[2017-07-13 05:53] LABS: Basophils % 0.7 % (0.0-0.8); Eosinophils # 0.1 10*3/uL (0.0-0.87); Eosinophils % 0.8 % (0.00-10.9); Hematocrit 40.8 VOL% (42.0-52.0); Hemoglobin 13.3 GM/DL (14.0-18.0); Immature Granulocytes Absolute 0.06 #; Lymphocytes # 1.9 10*3/uL (1.4-4.0); Lymphocytes % 30.6 % (21.2-54.2); Mean Corpuscular HGB Conc 32.6 GM/DL (32-36); Mean Corpuscular Hemoglobin 29 PG (27-34); Mean Corpuscular Volume 90.1 FL (87-102); Monocytes # 0.8 10*3/uL (0.11-0.8); Monocytes % 13.2 % (1.7-12.7); Neutrophils # 3.3 10*3/uL (1.4-7.4); Neutrophils % 53.7 % (38.7-73.9); Platelet Count 337 T/CUMM (130-400); Red Blood Count 4.53 MC/CUMM (3.8-5.5); Red Cell Distribution Width 12.3 % (9.3-17.3); White Blood Count 6.2 T/CUMM (4-12)
[2017-07-13] MEDS: ALBUTEROL 0.4 MG/ML 30 ML/BOTTLE PO SCH ×2 (05:59→14:14)
[2017-07-13 06:26] LABS: Calcium 8.9 MG/DL (8.5-10.1); Osmolality,Calculated 279.4 MOS/KG (273-304); Potassium 3.9 MMOL/L (3.5-5.1)
[2017-07-13] MEDS: LEVOFLOXACIN 500 MG TABLET PO SCH (08:37)
[2017-07-13] MEDS: THEOPHYLLINE ER 300 MG TABLET PO SCH (08:37)
[2017-07-13] MEDS: PANTOPRAZOLE 40 MG TABLET PO SCH (08:37)
[2017-07-13] MEDS: MONTELUKAST 10 MG TABLET PO SCH (08:38)
[2017-07-13] MEDS: ASPIRIN EC 81 MG TABLET PO SCH (08:38)
[2017-07-13] MEDS: MAGNESIUM CHLORIDE 64 MG TABLET PO SCH (08:38)
[2017-07-13] MEDS: predniSONE 20 MG TABLET PO SCH (08:38)
[2017-07-13] MEDS: LOSARTAN 50 MG TABLET PO SCH (08:38)
[2017-07-13] MEDS: amLODIPine 10 MG TABLET PO SCH (08:38)
[2017-07-13] MEDS: INSULIN REGULAR 100 UNIT/ML SUBCUT SCH ×2 (08:38→12:21)
[2017-07-13] MEDS: CARVEDILOL 12.5 MG TABLET PO SCH (08:38)
[2017-07-13] MEDS: glyBURIDE 2.5 MG TABLET PO SCH (10:04)
[2017-07-13 11:50] VITALS: BP 105/70
[2017-07-13] MEDS ORDERED: INFLUENZA VIRUS VACCINE 0.5 ML SYRINGE IM ONE (15:06)
[2017-07-18] MEDS ORDERED: predniSONE 10 MG TABLET PO SCH (09:00)
[2017-07-25] MEDS ORDERED: predniSONE 10 MG TABLET PO SCH (09:00)
== END 2017-07-13 15:30 | disposition home or self-care (01) ==
LOC: INTOOBSV 11:06 → N.TELES 11:06
PROVIDERS: ADMIT Internal Medicine Cardiovascular Disease; ATTEND Internal Medicine Cardiovascular Disease
PROC: CLCCHCL (ICD-10-PCS; 2017-07-12 14:15)

== ENCOUNTER 2017-11-13 14:32 | Inpatient (IN) ==
[2017-11-13] MEDS ORDERED: ALBUTEROL/IPRATROPIUM 3 ML NEB RESP TX PRN (14:36)
[2017-11-13] MEDS ORDERED: GLUCAGON 1 MG VIAL IM PRN (14:36)
[2017-11-13] MEDS ORDERED: DEXTROSE 50% 25 GM/50 ML VIAL IV PRN (14:36)
[2017-11-13 16:11] LABS: Basophils # 0.1 10*3/uL (0.0-0.2); Basophils % 1.1 % (0.0-0.8); Eosinophils # 0.3 10*3/uL (0.0-0.87); Eosinophils % 6.6 % (0.00-10.9); Hematocrit 42.7 VOL% (42.0-52.0); Hemoglobin 14.4 GM/DL (14.0-18.0); Immature Granulocytes % 0.4 %; Immature Granulocytes Absolute 0.02 #; Lymphocytes # 1.4 10*3/uL (1.4-4.0); Lymphocytes % 30.9 % (21.2-54.2); Mean Corpuscular HGB Conc 33.7 GM/DL (32-36); Mean Corpuscular Hemoglobin 30 PG (27-34); Mean Corpuscular Volume 89.1 FL (87-102); Mean Platelet Volume 10.7 FL (9.6-12.0); Monocytes # 0.3 10*3/uL (0.11-0.8); Monocytes % 6.1 % (1.7-12.7); Neutrophils # 2.5 10*3/uL (1.4-7.4); Neutrophils % 54.9 % (38.7-73.9); Platelet Count 205 T/CUMM (130-400); Red Blood Count 4.79 MC/CUMM (3.8-5.5); White Blood Count 4.6 T/CUMM (4-12)
[2017-11-13 16:27] LABS: Theophylline 14.4 UG/ML (10-20)
[2017-11-13 16:30] LABS: Hemoglobin A1C 6.7 % (4.2-6.3)
[2017-11-13 16:39] LABS: Bilirubin,Total 0.7 MG/DL (0.2-1.0); Osmolality,Calculated 275.8 MOS/KG (273-304); Potassium 3.8 MMOL/L (3.5-5.1); Thyroid Stimulating Hormone 1.38 uIU/ml (0.358-3.74); Total Protein 7.7 G/DL (6.4-8.3)
[2017-11-13] MEDS: SODIUM CHLORIDE 0.45% 1,000 ML IV SCH (17:20)
[2017-11-13] MEDS: methylPREDNISolone SOD SUC 40 MG/1 ML VIAL IV SCH (17:31)
[2017-11-13] MEDS: CLINDAMYCIN INJ 300 MG in PREMIX 1 EACH IV SCH ×2 (17:32→23:09)
[2017-11-13] MEDS ORDERED: MAGNESIUM SULF RIDER 4 GM in PREMIX 1 EACH IV PRN (17:35)
[2017-11-13] MEDS: INSULIN REGULAR 100 UNIT/ML SUBCUT SCH ×2 (17:41→20:36)
[2017-11-13] MEDS: LEVOFLOXACIN INJ 500 MG in PREMIX 1 EACH IV SCH (18:44)
[2017-11-13] MEDS: ALBUTEROL/IPRATROPIUM 3 ML NEB RESP TX SCH (19:03)
[2017-11-13] MEDS: FUROSEMIDE 20 MG TABLET PO SCH (19:23)
[2017-11-13] MEDS: metFORMIN 500 MG TABLET PO SCH (19:24)
[2017-11-13] MEDS: MONTELUKAST 10 MG TABLET PO SCH (20:35)
[2017-11-13] MEDS: MAGNESIUM CHLORIDE 64 MG TABLET PO SCH (20:35)
[2017-11-13] MEDS: POTASSIUM CHLORIDE 10 MEQ TABLET PO SCH (20:36)
[2017-11-13] MEDS: ALBUTEROL 0.4 MG/ML 30 ML/BOTTLE PO SCH (22:02)
[2017-11-13 22:42] LABS: Apearance,Urine CLEAR (Clear); Bilirubin,Urine Negative (Negative); Blood, Urine Negative (Negative); Glucose,Urine (UA) 150 mg/dL (Negative); Ketones,Urine 5 mg/dL (Negative); Mucus,Urine Occasional /LPF (Occasional); Nitrite,Urine Negative (Negative); Protein,Urine 100 MG/DL; RBC,Urine 1 /HPF (0-4); Urine Color Yellow (Yellow); Urine Specific Gravity 1.017 (1.001-1.035); Urine Urobilinogen < 2.0 EU/DL (0.2-1.0); WBC,Urine <1 /HPF (0-6)
[2017-11-14] MEDS: MAGNESIUM SULF RIDER 2 GM in PREMIX 1 EACH IV PRN ×2 (00:26→02:25)
[2017-11-14] MEDS: methylPREDNISolone SOD SUC 40 MG/1 ML VIAL IV SCH (04:13)
[2017-11-14] MEDS: ALBUTEROL 0.4 MG/ML 30 ML/BOTTLE PO SCH ×3 (05:51→22:02)
[2017-11-14 07:29] LABS: Basophils % 0.2 % (0.0-0.8); Hematocrit 42.5 VOL% (42.0-52.0); Hemoglobin 14.7 GM/DL (14.0-18.0); Immature Granulocytes % 0.5 %; Immature Granulocytes Absolute 0.02 #; Lymphocytes # 1.2 10*3/uL (1.4-4.0); Lymphocytes % 29.7 % (21.2-54.2); Mean Corpuscular HGB Conc 34.6 GM/DL (32-36); Mean Corpuscular Hemoglobin 30 PG (27-34); Mean Corpuscular Volume 86.2 FL (87-102); Mean Platelet Volume 10.8 FL (9.6-12.0); Monocytes # 0.1 10*3/uL (0.11-0.8); Monocytes % 2.7 % (1.7-12.7); Neutrophils # 2.7 10*3/uL (1.4-7.4); Neutrophils % 66.9 % (38.7-73.9); Platelet Count 225 T/CUMM (130-400); Red Blood Count 4.93 MC/CUMM (3.8-5.5); Red Cell Distribution Width 12.9 % (9.3-17.3)
[2017-11-14] MEDS: ALBUTEROL/IPRATROPIUM 3 ML NEB RESP TX SCH ×4 (07:34→19:04)
[2017-11-14 07:57] LABS: Calcium 9.2 MG/DL (8.5-10.1); Osmolality,Calculated 278.7 MOS/KG (273-304); Potassium 4.3 MMOL/L (3.5-5.1)
[2017-11-14] MEDS ORDERED: THEOPHYLLINE ER 300 MG TABLET PO SCH (08:00)
[2017-11-14] MEDS: INSULIN REGULAR 100 UNIT/ML SUBCUT SCH ×4 (08:39→21:56)
[2017-11-14] MEDS: MAGNESIUM CHLORIDE 64 MG TABLET PO SCH ×3 (08:51→21:55)
[2017-11-14] MEDS: metFORMIN 500 MG TABLET PO SCH ×2 (08:52→17:48)
[2017-11-14] MEDS: METOPROLOL SUCCINATE XL 100 MG TABLET PO SCH (08:52)
[2017-11-14] MEDS: POTASSIUM CHLORIDE 10 MEQ TABLET PO SCH ×2 (08:52→21:55)
[2017-11-14] MEDS: MONTELUKAST 10 MG TABLET PO SCH ×2 (08:52→21:55)
[2017-11-14] MEDS: traMADol 50 MG TABLET PO PRN ×2 (08:52→17:48)
[2017-11-14] MEDS: PANTOPRAZOLE 40 MG TABLET PO SCH (08:52)
[2017-11-14] MEDS: ASPIRIN 325 MG TABLET PO SCH (08:53)
[2017-11-14] MEDS: amLODIPine 10 MG TABLET PO SCH (08:53)
[2017-11-14] MEDS: glyBURIDE 2.5 MG TABLET PO SCH ×2 (08:56→17:59)
[2017-11-14] MEDS: FUROSEMIDE 20 MG TABLET PO SCH ×2 (09:00→15:25)
[2017-11-14] MEDS: CLINDAMYCIN INJ 300 MG in PREMIX 1 EACH IV SCH ×2 (09:01→15:26)
[2017-11-14] MEDS: PRAVASTATIN 40 MG TABLET PO SCH ×2 (09:30→21:55)
[2017-11-14] MEDS: DICLOFENAC 1.3% PATCH 5/PACK TRANSDERM SCH ×2 (10:59→21:54)
[2017-11-14] MEDS: methylPREDNISolone SOD SUC 125 MG/2 ML VIAL IV SCH ×2 (15:25→21:56)
[2017-11-14] MEDS: SODIUM CHLORIDE 0.45% 1,000 ML IV SCH (15:31)
[2017-11-14] MEDS: THEOPHYLLINE ER 300 MG TABLET PO SCH (17:48)
[2017-11-14] MEDS: LEVOFLOXACIN INJ 500 MG in PREMIX 1 EACH IV SCH (17:50)
[2017-11-15] MEDS: ALBUTEROL 0.4 MG/ML 30 ML/BOTTLE PO SCH ×3 (05:13→21:57)
[2017-11-15] MEDS: methylPREDNISolone SOD SUC 125 MG/2 ML VIAL IV SCH ×3 (05:13→20:47)
[2017-11-15 05:41] LABS: Basophils % 0.1 % (0.0-0.8); Hematocrit 40.1 VOL% (42.0-52.0); Hemoglobin 13.3 GM/DL (14.0-18.0); Immature Granulocytes % 0.7 %; Immature Granulocytes Absolute 0.05 #; Lymphocytes # 0.7 10*3/uL (1.4-4.0); Lymphocytes % 9.5 % (21.2-54.2); Mean Corpuscular HGB Conc 33.2 GM/DL (32-36); Mean Corpuscular Hemoglobin 30 PG (27-34); Mean Corpuscular Volume 88.9 FL (87-102); Mean Platelet Volume 10.6 FL (9.6-12.0); Monocytes # 0.1 10*3/uL (0.11-0.8); Monocytes % 1.9 % (1.7-12.7); Neutrophils # 6.5 10*3/uL (1.4-7.4); Neutrophils % 87.8 % (38.7-73.9); Platelet Count 230 T/CUMM (130-400); Red Blood Count 4.51 MC/CUMM (3.8-5.5); White Blood Count 7.4 T/CUMM (4-12)
[2017-11-15 06:18] LABS: Calcium 8.8 MG/DL (8.5-10.1); Osmolality,Calculated 279.8 MOS/KG (273-304); Potassium 4.7 MMOL/L (3.5-5.1)
[2017-11-15] MEDS: ALBUTEROL/IPRATROPIUM 3 ML NEB RESP TX SCH ×4 (07:31→20:15)
[2017-11-15 07:53] LABS: Barbiturates Screen,Urine Positive (Negative); Benzodiazepines Screen,Urine Negative (Negative); Cannabinoid Screen,Urine Negative (Negative); Opiate Screen,Urine Negative (Negative); Phencyclidine Screen,Urine Negative (Negative)
[2017-11-15] MEDS: amLODIPine 10 MG TABLET PO SCH (08:43)
[2017-11-15] MEDS: ASPIRIN 325 MG TABLET PO SCH (08:43)
[2017-11-15] MEDS: THEOPHYLLINE ER 300 MG TABLET PO SCH ×2 (08:43→16:44)
[2017-11-15] MEDS: FUROSEMIDE 20 MG TABLET PO SCH ×2 (08:43→16:44)
[2017-11-15] MEDS: MONTELUKAST 10 MG TABLET PO SCH ×2 (08:43→21:57)
[2017-11-15] MEDS: METOPROLOL SUCCINATE XL 100 MG TABLET PO SCH (08:43)
[2017-11-15] MEDS: MAGNESIUM CHLORIDE 64 MG TABLET PO SCH ×3 (08:43→20:47)
[2017-11-15] MEDS: POTASSIUM CHLORIDE 10 MEQ TABLET PO SCH ×2 (08:44→20:47)
[2017-11-15] MEDS: traMADol 50 MG TABLET PO PRN ×2 (08:44→16:44)
[2017-11-15] MEDS: metFORMIN 500 MG TABLET PO SCH ×2 (08:44→16:44)
[2017-11-15] MEDS: PANTOPRAZOLE 40 MG TABLET PO SCH (08:44)
[2017-11-15] MEDS: DOCUSATE SODIUM 100 MG CAPSULE PO PRN (08:45)
[2017-11-15] MEDS: DICLOFENAC 1.3% PATCH 5/PACK TRANSDERM SCH ×2 (08:45→20:49)
[2017-11-15] MEDS: CLINDAMYCIN INJ 300 MG in PREMIX 1 EACH IV SCH ×4 (08:45→23:22)
[2017-11-15] MEDS: SODIUM CHLORIDE 0.45% 1,000 ML IV SCH (08:46)
[2017-11-15] MEDS: INSULIN REGULAR 100 UNIT/ML SUBCUT SCH ×4 (08:48→20:47)
[2017-11-15] MEDS: glyBURIDE 2.5 MG TABLET PO SCH ×2 (09:42→16:44)
[2017-11-15] MEDS: LEVOFLOXACIN INJ 500 MG in PREMIX 1 EACH IV SCH (17:17)
[2017-11-16] MEDS: SODIUM CHLORIDE 0.45% 1,000 ML IV SCH ×2 (03:30→18:36)
[2017-11-16] MEDS: ALBUTEROL 0.4 MG/ML 30 ML/BOTTLE PO SCH ×3 (05:43→21:24)
[2017-11-16] MEDS: methylPREDNISolone SOD SUC 125 MG/2 ML VIAL IV SCH ×3 (05:43→20:28)
[2017-11-16 07:23] LABS: Osmolality,Calculated 283.7 MOS/KG (273-304); Potassium 4.7 MMOL/L (3.5-5.1)
[2017-11-16] MEDS: INSULIN REGULAR 100 UNIT/ML SUBCUT SCH ×4 (07:54→21:23)
[2017-11-16] MEDS: ALBUTEROL/IPRATROPIUM 3 ML NEB RESP TX SCH ×4 (08:09→20:18)
[2017-11-16] MEDS: ASPIRIN 325 MG TABLET PO SCH (08:41)
[2017-11-16] MEDS: amLODIPine 10 MG TABLET PO SCH (08:41)
[2017-11-16] MEDS: METOPROLOL SUCCINATE XL 100 MG TABLET PO SCH (08:41)
[2017-11-16] MEDS: glyBURIDE 2.5 MG TABLET PO SCH ×2 (08:41→16:29)
[2017-11-16] MEDS: FUROSEMIDE 20 MG TABLET PO SCH ×2 (08:41→16:30)
[2017-11-16] MEDS: MAGNESIUM CHLORIDE 64 MG TABLET PO SCH ×3 (08:41→20:28)
[2017-11-16] MEDS: THEOPHYLLINE ER 300 MG TABLET PO SCH ×2 (08:41→16:29)
[2017-11-16] MEDS: PRAVASTATIN 40 MG TABLET PO SCH (08:42)
[2017-11-16] MEDS: MONTELUKAST 10 MG TABLET PO SCH ×2 (08:42→20:28)
[2017-11-16] MEDS: DICLOFENAC 1.3% PATCH 5/PACK TRANSDERM SCH ×2 (08:42→20:27)
[2017-11-16] MEDS: metFORMIN 500 MG TABLET PO SCH ×2 (08:42→16:29)
[2017-11-16] MEDS: POTASSIUM CHLORIDE 10 MEQ TABLET PO SCH ×2 (08:42→20:28)
[2017-11-16] MEDS: PANTOPRAZOLE 40 MG TABLET PO SCH (08:42)
[2017-11-16] MEDS: CLINDAMYCIN INJ 300 MG in PREMIX 1 EACH IV SCH ×2 (08:43→16:30)
[2017-11-16] MEDS: traMADol 50 MG TABLET PO PRN ×2 (08:50→21:23)
[2017-11-16] MEDS: DOCUSATE SODIUM 100 MG CAPSULE PO PRN ×2 (08:50→21:25)
[2017-11-16] MEDS: LEVOFLOXACIN INJ 500 MG in PREMIX 1 EACH IV SCH (17:05)
[2017-11-17] MEDS: CLINDAMYCIN INJ 300 MG in PREMIX 1 EACH IV SCH ×3 (00:16→16:32)
[2017-11-17] MEDS: SODIUM CHLORIDE 0.45% 1,000 ML IV SCH (00:16)
[2017-11-17] MEDS: methylPREDNISolone SOD SUC 125 MG/2 ML VIAL IV SCH ×3 (05:02→20:14)
[2017-11-17] MEDS: ALBUTEROL 0.4 MG/ML 30 ML/BOTTLE PO SCH ×3 (05:03→21:12)
[2017-11-17] MEDS: ALBUTEROL/IPRATROPIUM 3 ML NEB RESP TX SCH ×4 (07:11→19:18)
[2017-11-17 09:13] LABS: Calcium 8.9 MG/DL (8.5-10.1); Potassium 4.3 MMOL/L (3.5-5.1)
[2017-11-17] MEDS: amLODIPine 10 MG TABLET PO SCH (09:16)
[2017-11-17] MEDS: metFORMIN 500 MG TABLET PO SCH ×2 (09:17→16:33)
[2017-11-17] MEDS: PRAVASTATIN 40 MG TABLET PO SCH (09:17)
[2017-11-17] MEDS: FUROSEMIDE 20 MG TABLET PO SCH ×2 (09:17→16:33)
[2017-11-17] MEDS: MAGNESIUM CHLORIDE 64 MG TABLET PO SCH ×3 (09:17→20:13)
[2017-11-17] MEDS: MONTELUKAST 10 MG TABLET PO SCH ×2 (09:17→20:12)
[2017-11-17] MEDS: PANTOPRAZOLE 40 MG TABLET PO SCH (09:17)
[2017-11-17] MEDS: ASPIRIN 325 MG TABLET PO SCH (09:17)
[2017-11-17] MEDS: THEOPHYLLINE ER 300 MG TABLET PO SCH ×2 (09:17→16:33)
[2017-11-17] MEDS: glyBURIDE 2.5 MG TABLET PO SCH ×2 (09:17→16:33)
[2017-11-17] MEDS: POTASSIUM CHLORIDE 10 MEQ TABLET PO SCH ×2 (09:17→20:13)
[2017-11-17] MEDS: METOPROLOL SUCCINATE XL 100 MG TABLET PO SCH (09:17)
[2017-11-17] MEDS: INSULIN REGULAR 100 UNIT/ML SUBCUT SCH ×4 (09:18→21:12)
[2017-11-17] MEDS: DOCUSATE SODIUM 100 MG CAPSULE PO PRN (09:21)
[2017-11-17] MEDS: traMADol 50 MG TABLET PO PRN ×2 (09:23→21:12)
[2017-11-17] MEDS: DICLOFENAC 1.3% PATCH 5/PACK TRANSDERM SCH ×2 (11:22→20:16)
[2017-11-17] MEDS: LEVOFLOXACIN INJ 500 MG in PREMIX 1 EACH IV SCH (17:26)
[2017-11-18] MEDS: CLINDAMYCIN INJ 300 MG in PREMIX 1 EACH IV SCH ×4 (00:31→23:52)
[2017-11-18] MEDS: ALBUTEROL 0.4 MG/ML 30 ML/BOTTLE PO SCH ×3 (05:46→22:34)
[2017-11-18] MEDS: methylPREDNISolone SOD SUC 125 MG/2 ML VIAL IV SCH (05:46)
[2017-11-18 06:21] LABS: Calcium 9.3 MG/DL (8.5-10.1); Potassium 5.1 MMOL/L (3.5-5.1)
[2017-11-18] MEDS: ALBUTEROL/IPRATROPIUM 3 ML NEB RESP TX SCH ×4 (07:24→19:30)
[2017-11-18] MEDS: INSULIN REGULAR 100 UNIT/ML SUBCUT SCH ×4 (07:37→22:32)
[2017-11-18] MEDS: methylPREDNISolone SOD SUC 40 MG/1 ML VIAL IV SCH ×2 (09:28→21:24)
[2017-11-18] MEDS: MONTELUKAST 10 MG TABLET PO SCH ×2 (09:32→21:23)
[2017-11-18] MEDS: FUROSEMIDE 20 MG TABLET PO SCH ×2 (09:32→15:45)
[2017-11-18] MEDS: METOPROLOL SUCCINATE XL 100 MG TABLET PO SCH (09:32)
[2017-11-18] MEDS: glyBURIDE 2.5 MG TABLET PO SCH ×2 (09:33→17:10)
[2017-11-18] MEDS: PANTOPRAZOLE 40 MG TABLET PO SCH (09:33)
[2017-11-18] MEDS: amLODIPine 10 MG TABLET PO SCH (09:33)
[2017-11-18] MEDS: DOCUSATE SODIUM 100 MG CAPSULE PO PRN ×2 (09:33→22:36)
[2017-11-18] MEDS: ASPIRIN 325 MG TABLET PO SCH (09:33)
[2017-11-18] MEDS: traMADol 50 MG TABLET PO PRN ×2 (09:33→21:23)
[2017-11-18] MEDS: THEOPHYLLINE ER 300 MG TABLET PO SCH ×2 (09:33→17:10)
[2017-11-18] MEDS: MAGNESIUM CHLORIDE 64 MG TABLET PO SCH ×3 (09:33→21:23)
[2017-11-18] MEDS: POTASSIUM CHLORIDE 10 MEQ TABLET PO SCH ×2 (09:35→21:23)
[2017-11-18] MEDS: DICLOFENAC 1.3% PATCH 5/PACK TRANSDERM SCH ×2 (09:35→21:27)
[2017-11-18] MEDS: metFORMIN 500 MG TABLET PO SCH ×2 (09:35→17:10)
[2017-11-18] MEDS: PRAVASTATIN 40 MG TABLET PO SCH (09:35)
[2017-11-18] MEDS: LEVOFLOXACIN INJ 500 MG in PREMIX 1 EACH IV SCH (17:10)
[2017-11-19] MEDS: ALBUTEROL 0.4 MG/ML 30 ML/BOTTLE PO SCH ×3 (05:33→21:53)
[2017-11-19 07:53] LABS: Calcium 8.7 MG/DL (8.5-10.1); Osmolality,Calculated 278.4 MOS/KG (273-304); Potassium 4.3 MMOL/L (3.5-5.1)
[2017-11-19] MEDS: ALBUTEROL/IPRATROPIUM 3 ML NEB RESP TX SCH ×4 (08:25→19:34)
[2017-11-19] MEDS: INSULIN REGULAR 100 UNIT/ML SUBCUT SCH ×4 (10:26→21:50)
[2017-11-19] MEDS: DICLOFENAC 1.3% PATCH 5/PACK TRANSDERM SCH ×2 (10:28→21:51)
[2017-11-19] MEDS: METOPROLOL SUCCINATE XL 100 MG TABLET PO SCH (10:29)
[2017-11-19] MEDS: DOCUSATE SODIUM 100 MG CAPSULE PO PRN ×2 (10:29→21:47)
[2017-11-19] MEDS: MAGNESIUM CHLORIDE 64 MG TABLET PO SCH ×3 (10:29→21:47)
[2017-11-19] MEDS: MONTELUKAST 10 MG TABLET PO SCH ×2 (10:30→21:47)
[2017-11-19] MEDS: amLODIPine 10 MG TABLET PO SCH (10:30)
[2017-11-19] MEDS: PANTOPRAZOLE 40 MG TABLET PO SCH (10:30)
[2017-11-19] MEDS: POTASSIUM CHLORIDE 10 MEQ TABLET PO SCH ×2 (10:30→21:47)
[2017-11-19] MEDS: ASPIRIN 325 MG TABLET PO SCH (10:30)
[2017-11-19] MEDS: PRAVASTATIN 40 MG TABLET PO SCH (10:30)
[2017-11-19] MEDS: metFORMIN 500 MG TABLET PO SCH ×2 (10:31→17:44)
[2017-11-19] MEDS: THEOPHYLLINE ER 300 MG TABLET PO SCH ×2 (10:31→17:43)
[2017-11-19] MEDS: FUROSEMIDE 20 MG TABLET PO SCH ×2 (10:31→17:43)
[2017-11-19] MEDS: glyBURIDE 2.5 MG TABLET PO SCH ×2 (10:32→17:44)
[2017-11-19] MEDS: methylPREDNISolone SOD SUC 40 MG/1 ML VIAL IV SCH ×2 (10:32→21:48)
[2017-11-19] MEDS: CLINDAMYCIN INJ 300 MG in PREMIX 1 EACH IV SCH ×3 (10:34→23:53)
[2017-11-19] MEDS: traMADol 50 MG TABLET PO PRN ×2 (10:49→21:47)
[2017-11-19] MEDS: LEVOFLOXACIN INJ 500 MG in PREMIX 1 EACH IV SCH (17:48)
[2017-11-20] MEDS: ALBUTEROL 0.4 MG/ML 30 ML/BOTTLE PO SCH ×3 (06:18→22:45)
[2017-11-20] MEDS: ALBUTEROL/IPRATROPIUM 3 ML NEB RESP TX SCH ×4 (07:31→20:25)
[2017-11-20] MEDS: INSULIN REGULAR 100 UNIT/ML SUBCUT SCH ×4 (09:34→21:45)
[2017-11-20] MEDS: DOCUSATE SODIUM 100 MG CAPSULE PO PRN ×2 (09:37→21:37)
[2017-11-20] MEDS: traMADol 50 MG TABLET PO PRN ×2 (09:37→21:32)
[2017-11-20] MEDS: THEOPHYLLINE ER 300 MG TABLET PO SCH ×3 (09:38→16:59)
[2017-11-20] MEDS: metFORMIN 500 MG TABLET PO SCH ×2 (09:38→16:59)
[2017-11-20] MEDS: FUROSEMIDE 20 MG TABLET PO SCH ×2 (09:39→15:56)
[2017-11-20] MEDS: glyBURIDE 2.5 MG TABLET PO SCH ×2 (09:39→16:58)
[2017-11-20] MEDS: amLODIPine 10 MG TABLET PO SCH (09:39)
[2017-11-20] MEDS: PRAVASTATIN 40 MG TABLET PO SCH (09:39)
[2017-11-20] MEDS: METOPROLOL SUCCINATE XL 100 MG TABLET PO SCH (09:40)
[2017-11-20] MEDS: PANTOPRAZOLE 40 MG TABLET PO SCH (09:40)
[2017-11-20] MEDS: MONTELUKAST 10 MG TABLET PO SCH ×2 (09:40→21:31)
[2017-11-20] MEDS: ASPIRIN 325 MG TABLET PO SCH (09:40)
[2017-11-20] MEDS: POTASSIUM CHLORIDE 10 MEQ TABLET PO SCH ×2 (09:40→21:31)
[2017-11-20] MEDS: MAGNESIUM CHLORIDE 64 MG TABLET PO SCH ×3 (09:40→21:31)
[2017-11-20] MEDS: DICLOFENAC 1.3% PATCH 5/PACK TRANSDERM SCH ×3 (09:42→21:30)
[2017-11-20] MEDS: methylPREDNISolone SOD SUC 40 MG/1 ML VIAL IV SCH ×2 (09:42→21:40)
[2017-11-20] MEDS: CLINDAMYCIN INJ 300 MG in PREMIX 1 EACH IV SCH ×2 (09:42→15:52)
[2017-11-20] MEDS: LEVOFLOXACIN INJ 500 MG in PREMIX 1 EACH IV SCH (17:11)
[2017-11-21] MEDS: CLINDAMYCIN INJ 300 MG in PREMIX 1 EACH IV SCH ×3 (00:03→16:42)
[2017-11-21 05:37] LABS: Basophils # 0.1 10*3/uL (0.0-0.2); Basophils % 0.8 % (0.0-0.8); Hemoglobin 14.1 GM/DL (14.0-18.0); Immature Granulocytes % 5.5 %; Lymphocytes # 0.7 10*3/uL (1.4-4.0); Lymphocytes % 7.9 % (21.2-54.2); Mean Corpuscular HGB Conc 34.4 GM/DL (32-36); Mean Corpuscular Hemoglobin 30 PG (27-34); Mean Platelet Volume 10.4 FL (9.6-12.0); Monocytes # 0.4 10*3/uL (0.11-0.8); Monocytes % 4.7 % (1.7-12.7); NRBC # 0.02 10*3/uL; Neutrophils # 7.4 10*3/uL (1.4-7.4); Neutrophils % 81.1 % (38.7-73.9); Platelet Count 263 T/CUMM (130-400); Red Blood Count 4.71 MC/CUMM (3.8-5.5); Red Cell Distribution Width 12.8 % (9.3-17.3); White Blood Count 9.1 T/CUMM (4-12)
[2017-11-21 05:43] LABS: PT Patient Result 10.8 SECS
[2017-11-21] MEDS: ALBUTEROL 0.4 MG/ML 30 ML/BOTTLE PO SCH ×3 (06:10→21:30)
[2017-11-21 06:20] LABS: Giant Platelets Few; Hypochromasia 1+; Lymphocytes 8 % (20-55); Nucleated Red Blood Cells 1 (0-5); Platelet Estimate Adequate; Segmented Neutrophils 88 % (50-85); Total Cells Counted 100
[2017-11-21] MEDS ORDERED: LIDOCAINE 1% 20 ML VIAL MISC INJ ONE (07:00)
[2017-11-21] MEDS: ALBUTEROL/IPRATROPIUM 3 ML NEB RESP TX SCH ×4 (07:06→19:29)
[2017-11-21] MEDS ORDERED: BENZONATATE 100 MG CAPSULE PO ONE (08:00)
[2017-11-21] MEDS ORDERED: diphenhydrAMINE 50 MG/1 ML VIAL IM ONE (08:00)
[2017-11-21] MEDS ORDERED: MEPERIDINE 50 MG/1 ML VIAL IM ONE (08:00)
[2017-11-21] MEDS: INSULIN REGULAR 100 UNIT/ML SUBCUT SCH ×4 (08:14→21:29)
[2017-11-21] MEDS ORDERED: LIDOCAINE 2% 20 ML VIAL RESP TX ONE (08:30)
[2017-11-21] MEDS ORDERED: LIDOCAINE 2% VISCOUS 100 ML BOTTLE SWISH/SPIT ONE (08:30)
[2017-11-21] MEDS: glyBURIDE 2.5 MG TABLET PO SCH ×2 (10:18→16:43)
[2017-11-21] MEDS: FUROSEMIDE 20 MG TABLET PO SCH ×2 (10:19→16:43)
[2017-11-21] MEDS: THEOPHYLLINE ER 300 MG TABLET PO SCH ×2 (10:19→16:43)
[2017-11-21] MEDS: metFORMIN 500 MG TABLET PO SCH ×2 (10:19→16:39)
[2017-11-21] MEDS: PRAVASTATIN 40 MG TABLET PO SCH (10:56)
[2017-11-21] MEDS: PANTOPRAZOLE 40 MG TABLET PO SCH (10:56)
[2017-11-21] MEDS: ASPIRIN 325 MG TABLET PO SCH (10:56)
[2017-11-21] MEDS: POTASSIUM CHLORIDE 10 MEQ TABLET PO SCH ×2 (10:56→21:29)
[2017-11-21] MEDS: METOPROLOL SUCCINATE XL 100 MG TABLET PO SCH (10:57)
[2017-11-21] MEDS: MAGNESIUM CHLORIDE 64 MG TABLET PO SCH ×3 (10:57→21:28)
[2017-11-21] MEDS: MONTELUKAST 10 MG TABLET PO SCH ×2 (10:57→21:28)
[2017-11-21] MEDS: methylPREDNISolone SOD SUC 40 MG/1 ML VIAL IV SCH ×2 (10:58→21:29)
[2017-11-21] MEDS: amLODIPine 10 MG TABLET PO SCH (10:58)
[2017-11-21] MEDS: traMADol 50 MG TABLET PO PRN (11:20)
[2017-11-21] MEDS: DOCUSATE SODIUM 100 MG CAPSULE PO PRN ×2 (11:20→21:28)
[2017-11-21] MEDS: DICLOFENAC 1.3% PATCH 5/PACK TRANSDERM SCH ×2 (11:22→21:29)
[2017-11-21] MEDS: LEVOFLOXACIN INJ 500 MG in PREMIX 1 EACH IV SCH (16:39)
[2017-11-22] MEDS: CLINDAMYCIN INJ 300 MG in PREMIX 1 EACH IV SCH ×2 (00:27→09:16)
[2017-11-22] MEDS: ALBUTEROL 0.4 MG/ML 30 ML/BOTTLE PO SCH (05:54)
[2017-11-22] MEDS: ALBUTEROL/IPRATROPIUM 3 ML NEB RESP TX SCH ×2 (07:20→11:05)
[2017-11-22] MEDS: glyBURIDE 2.5 MG TABLET PO SCH (09:17)
[2017-11-22] MEDS: ASPIRIN 325 MG TABLET PO SCH (09:17)
[2017-11-22] MEDS: metFORMIN 500 MG TABLET PO SCH (09:17)
[2017-11-22] MEDS: FUROSEMIDE 20 MG TABLET PO SCH (09:18)
[2017-11-22] MEDS: MAGNESIUM CHLORIDE 64 MG TABLET PO SCH (09:18)
[2017-11-22] MEDS: POTASSIUM CHLORIDE 10 MEQ TABLET PO SCH (09:18)
[2017-11-22] MEDS: METOPROLOL SUCCINATE XL 100 MG TABLET PO SCH (09:18)
[2017-11-22] MEDS: PRAVASTATIN 40 MG TABLET PO SCH (09:18)
[2017-11-22] MEDS: PANTOPRAZOLE 40 MG TABLET PO SCH (09:18)
[2017-11-22] MEDS: MONTELUKAST 10 MG TABLET PO SCH (09:19)
[2017-11-22] MEDS: DOCUSATE SODIUM 100 MG CAPSULE PO PRN (09:19)
[2017-11-22] MEDS: amLODIPine 10 MG TABLET PO SCH (09:19)
[2017-11-22] MEDS: THEOPHYLLINE ER 300 MG TABLET PO SCH (09:19)
[2017-11-22] MEDS: INSULIN REGULAR 100 UNIT/ML SUBCUT SCH ×2 (09:26→12:57)
[2017-11-22] MEDS: DICLOFENAC 1.3% PATCH 5/PACK TRANSDERM SCH (09:31)
[2017-11-22] MEDS: methylPREDNISolone SOD SUC 40 MG/1 ML VIAL IV SCH (09:32)
[2017-11-22 11:42] VITALS: BP 164/95
== END 2017-11-22 14:42 | disposition home health service (06) | DRG 192 ==
LOC: N.5E 15:16
PROVIDERS: ADMIT Internal Medicine Pulmonary Disease; ATTEND Internal Medicine Pulmonary Disease